=== PATIENT | male | born 1965 | race African-American/Black ===

== ENCOUNTER 2017-04-09 18:27 | Inpatient (IN) | payer OTHER ==
[2017-04-09 19:25] VITALS: BMI 23.0
--- NOTE | 2017-04-09 20:59 | HP ---
CIWA Score - CIWA Score Nausea/Vomitin Muscle Tremors: 4-Moderate,w/Arms Extend Anxiety: 4-Mod. Anxious/Guarded Agitation: 4-Moderately Restless Paroxysmal Sweats: 3 Orientation: 0-Oriented Tacttile Disturbances: 0-None Auditory Disturbances: 0-None Visual Disturbances: 0-None Headache: 0-None Present CIWA-Ar Total Score: 18 Admission ROS BHS - HPI Chief Complaint: C/O WITHDRAWAL SX'S. SEEKING DETOX TXMENT FOR ALCOHOLISM Allergies/Adverse Reactions: Allergies Allergy/AdvReac Type Severity Reaction Status Date / Time Penicillins AdvReac Verified 04/09/17 20:53 History of Present Illness: 52 Y.O. MALE WITH HX/O ALCOHOLISM HERE FOR ADMISSION TO DETOX. THIS IS HIS FIRST TIME HERE. SENT BY [facility]. DENIES ANY RECENT DETOX IN PAST MONTH. DENIES ANY SIGNIFICANT PERIOD OF CLEAN TIME. Exam Limitations: No Limitations - Ebola screening Have you traveled outside of the country in the last 21 days: No Have you had contact with anyone from an Ebola affected area: No Have you been sick,other than usual withdrawal symptoms: No Do you have a fever: No - Review of Systems Constitutional: Chills, Loss of Appetite, Night Sweats, Changes in sleep EENT: reports: Dental Problems (MISSING TEETH) Respiratory: reports: No Symptoms reported Cardiac: reports: No Symptoms Reported GI: reports: Poor Appetite, Poor Fluid Intake, Abdominal cramping : reports: No Symptoms Reported Musculoskeletal: reports: No Symptoms Reported Integumentary: reports: No Symptoms Reported Neuro: reports: Tremors (R/T ETOH WITHDRAWAL) Endocrine: reports: No Symptoms Reported Hematology: reports: No Symptoms Reported Psychiatric: reports: Depressed, other (SCHIZOPHRENIA) Other Systems: Reviewed and Negative Patient History - Patient Medical History Hx Anemia: No Hx Asthma: No Hx Chronic Obstructive Pulmonary Disease (COPD): No Hx Cancer: No Hx Cardiac Disorders: No Hx Congestive Heart Failure: No Hx Hypertension: No Hx Hypercholesterolemia: No Hx Pacemaker: No HX Cerebrovascular Accident: No Hx Seizures: No Hx Dementia: No Hx Diabetes: No Hx Gastrointestinal Disorders: No Hx Liver Disease: No Hx Genitourinary Disorders: No Hx Sexually Transmitted Disorders: No Hx Renal Disease (ESRD): No Hx Thyroid Disease: No Hx Human Immunodeficiency Virus (HIV): No Hx Hepatitis C: No Hx Depression: No Hx Suicide Attempt: No Hx Bipolar Disorder: No Hx Schizophrenia: Yes (ON RISPERDAL) - Patient Surgical History Past Surgical History: No - PPD History Previous Implant?: Yes Documented Results: Negative w/o proof Implanted On Prior [facility] Admission?: No PPD to be Administered?: Yes - Smoking Cessation Smoking history: Current every day smoker Have you smoked in the past 12 months: Yes Aproximately how many cigarettes per day: 20 Cigars Per Day: 0 Hx Chewing Tobacco Use: No Initiated information on smoking cessation: Yes 'Breaking Loose' booklet given: 04/09/17 - Substance & Tx. History Hx Alcohol Use: Yes Hx Substance Use: Yes Substance Use Type: Alcohol, Cocaine Hx Substance Use Treatment: Yes (DOES NOT RECALL " UPSTATE SOMEWHERE") - Substances Abused BEER/ LIQUOR Route: Oral Frequency: Daily Amount used: 1 PINT/ 1- 6 PACK Age of first use: 14 Date of Last Use: 04/09/17 COCAINE Route: Smoking Frequency: Daily Amount used: 100 Age of first use: 24 Date of Last Use: 04/09/17 Family Disease History - Family Disease History Family Disease History: Diabetes: Mother (), Other: Father (ALCOHOLISM, ) Admission Physical Exam BHS - Vital Signs Vital Signs: Vital Signs - 24 hr 04/09/17 19:21 Temperature 98.1 F Pulse Rate 85 Respiratory 18 Rate Blood Pressure 112/77 - Physical General Appearance: Yes: Disheveled, Mild Distress, Tremorous, Anxious HEENTM: Yes: EOMI, Normal ENT Inspection, Normocephalic, YOKASTA, Pharynx Normal, Other (MISSING TEETH) Respiratory: Yes: Chest Non-Tender, Lungs Clear, Normal Breath Sounds, No Respiratory Distress, No Accessory Muscle Use Neck: Yes: No masses,lesions,Nodules, Supple, Trachea in good position Breast: Yes: Breast Exam Deferred Cardiology: Yes: Regular Rhythm, Regular Rate, S1, S2 Abdominal: Yes: Normal Bowel Sounds, Non Tender, Soft Genitourinary: Yes: Within Normal Limits Back: Yes: Normal Inspection Musculoskeletal: Yes: full range of Motion, Gait Steady Extremities: Yes: Normal Capillary Refill, Normal Range of Motion, Non-Tender, Tremors 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: 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: 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, Fully Oriented, Alert Integumentary: Yes: Dry, Warm, Other (ECZEMA PATCHES TO INNER AC) Lymphatic: Yes: Within Normal Limits - Diagnostic (1) Alcohol dependence with uncomplicated withdrawal Current Visit: Yes Status: Chronic (2) Cocaine abuse, uncomplicated Current Visit: Yes Status: Chronic (3) Nicotine dependence Current Visit: Yes Status: Chronic Qualifiers: Nicotine product type: cigarettes Substance use status: unspecified nicotine-induced disorder Qualified Code(s): F17.219 - Nicotine dependence, cigarettes, with unspecified nicotine-induced disorders Cleared for Admission [facility] - Detox or Rehab [facility] Level of Care: Medically Managed Detox Regimen/Protocol: Librium [facility] Breath Alcohol Content Breath Alcohol Content: 0 Urine Drug Screen - Results Drug Screen Negative: No Urine Drug Screen Results: ELYSIA-Cocaine
[2017-04-09] MEDS ORDERED: MENTHOL/PHENOL 1 EACH UD MM PRN (21:08)
[2017-04-09] MEDS ORDERED: P-EPHED 60MG/TRIPROLIDI 2.5MG TABLET PO PRN (21:08)
[2017-04-09] MEDS ORDERED: chlordiazePOXIDE HCL 25 MG CAPSULE PO PRN (21:08)
[2017-04-09] MEDS ORDERED: ACETAMINOPHEN 325 MG TABLET (FP) PO PRN (21:08)
[2017-04-09] MEDS ORDERED: MAGNESIUM HYDROX 2400MG/30ML ORAL SUSPENSION 30 ML CUP PO PRN (21:08)
[2017-04-09] MEDS ORDERED: IBUPROFEN 400 MG TABLET (FP) PO PRN (21:08)
[2017-04-09] MEDS ORDERED: MAGNESIUM CITRATE 300 ML BOTTLE PO PRN (21:08)
[2017-04-09] MEDS ORDERED: hydrOXYzine PAMOATE 50 MG CAPSULE (FP) PO PRN (21:08)
[2017-04-09] MEDS ORDERED: MAG HYDROX/AL HYDROX/SIMETH 30 ML UNIT-DOSE CUP PO PRN (21:08)
[2017-04-09] MEDS ORDERED: LOPERAMIDE HCL 2 MG CAPSULE PO PRN (21:08)
[2017-04-09] MEDS ORDERED: guaiFENesin/D-METHORPHAN HB 10 ML UNIT-DOSE CUPS PO PRN (21:08)
[2017-04-09] MEDS ORDERED: NICOTINE POLACRILEX 4 MG GUM BC PRN (21:08)
[2017-04-09] MEDS: THIAMINE HCL 100 MG TABLET (FP) PO SCH (23:53)
[2017-04-09] MEDS: chlordiazePOXIDE HCL 25 MG CAPSULE PO SCH (23:53)
[2017-04-10] MEDS: chlordiazePOXIDE HCL 25 MG CAPSULE PO SCH ×4 (06:28→22:18)
[2017-04-10 10:12] LABS: MCH 29.4 pg (25.7-33.7); MCHC 32.6 g/dl (32.0-35.9); MEAN CELL VOLUME 90.3 fl (80-96); MEAN PLT VOLUME 8.8 fl (7.5-11.1); PLATELET COUNT 186 K/MM3 (134-434); RDW 15.8 % (11.9-15.9); WHITE BLOOD COUNT 3.9 K/mm3 (4.0-10.0)
[2017-04-10 10:20] LABS: ALBUMIN 3.2 g/dl (3.4-5.0); ANION GAP 7 (8-16); CALCIUM 8.2 mg/dL (8.5-10.1); CO2 27 mmol/L (21-32); GLUCOSE,RANDOM 114 mg/dL (74-106)
[2017-04-10 10:22] LABS: ALK PHOS 97 U/L (45-117); BILIRUBIN,TOTAL 0.8 mg/dL (0.2-1.0); CREATININE 1.2 mg/dL (0.7-1.3); SGOT/AST 30 U/L (15-37); SGPT/ALT 21 U/L (12-78); TOT PROT 6.3 g/dl (6.4-8.2)
[2017-04-10] MEDS: PRENATAL VITAMINS W/ FOLIC ACID TABLET (FP) PO SCH (10:24)
[2017-04-10] MEDS: NICOTINE 21 MG/24 HOURS TOPICAL PATCH TD SCH (10:24)
--- NOTE | 2017-04-10 11:37 | CONSULT ---
[facility] Psychiatric Consult - Data Date of interview: 04/10/17 Admission source: [facility] Identifying data: Pt. is a 52 year old single, unemployed male. Pt. admitted to for cocaine and alcohol dependence. Substance Abuse History: Cocaine- First used: 24 years old. Usage: Daily, " a large amount." Last used on 04/09/2017. Beer- First used [age] years of age. Usage: 1 pint/ 1-6 packs daily. Last used on 04/09/2017. Cigarettes- First used: "Long time ago". Usage: Daily. Medical History: Pt. denies. Psychiatric History: Pt. self reports a history of schizophrenia. States he has been on the medication risperdal 2mg for 8 years. Mr. Blum states the medication is prescribed by his primary care provider. Pt. unable to provide a contact number. Pt. denies h/o past psychiatric hospitalizations. Pt. denies h /o suicide attempts. Pt. currently denies SI, HI, and auditory and visual hallucinations. Physical/Sexual Abuse/Trauma History: Pt. denies. Mental Status Exam - Mental Status Exam Alert and Oriented to: Time, Place, Person Cognitive Function: Fair Patient Appearance: Well Groomed Mood: Withdrawn Affect: Flat Patient Behavior: Sedated, Asleep (Pt. continued to fall asleep throughout interview but was able to answer the questions.) Speech Pattern: Slurred Voice Loudness: Moderately Soft/Quiet Thought Process: Goal Oriented Thought Disorder: Not Present Hallucinations: Denies Suicidal Ideation: Denies Homicidal Ideation: Denies Insight/Judgement: Fair Sleep: Fair Appetite: Fair Muscle strength/Tone: Normal Gait/Station: Other (was not able to witness patient's gait due to patient laying in bed throughout the interview.) Psychiatric Findings - Problem List ([place] 1, 2,3) (1) Alcohol dependence with uncomplicated withdrawal Current Visit: Yes Status: Acute (2) Cocaine abuse, uncomplicated Current Visit: Yes Status: Acute (3) Nicotine dependence Current Visit: Yes Status: Chronic Qualifiers: Nicotine product type: cigarettes Substance use status: unspecified nicotine-induced disorder Qualified Code(s): F17.219 - Nicotine dependence, cigarettes, with unspecified nicotine-induced disorders (4) Substance induced mood disorder Current Visit: Yes Status: Suspected - Initial Treatment Plan Initial Treatment Plan: Psychoeducation provided. Detoxification in progress. Pt. refused psychotrophic medications.
--- NOTE | 2017-04-10 11:43 | EKG ---
Test Reason : Blood Pressure : / mmHG Vent. Rate : 053 BPM Atrial Rate : 078 BPM P-R Int : 140 ms QRS Dur : 104 ms QT Int : 518 ms P-R-T Axes : 047 075 071 degrees QTc Int : 486 ms SINUS RHYTHM WITH BLOCKED PREMATURE ATRIAL COMPLEXES VOLTAGE CRITERIA FOR LEFT VENTRICULAR HYPERTROPHY T WAVE ABNORMALITY, CONSIDER ANTERIOR ISCHEMIA PROLONGED QT ABNORMAL ECG NO PREVIOUS ECGS AVAILABLE Confirmed by SHYANNE XAVIER, HAWK ([id number]) on 04/10/2017 11:43:15 AM Referred By: Confirmed By:HAWK KIMBLE MD
--- NOTE | 2017-04-10 11:43 | EKG ---
Test Reason : Blood Pressure : / mmHG Vent. Rate : 050 BPM Atrial Rate : 050 BPM P-R Int : 142 ms QRS Dur : 102 ms QT Int : 496 ms P-R-T Axes : 064 073 069 degrees QTc Int : 452 ms SINUS BRADYCARDIA MINIMAL VOLTAGE CRITERIA FOR LVH, MAY BE NORMAL VARIANT ST ELEVATION, CONSIDER EARLY REPOLARIZATION, PERICARDITIS, OR INJURY ABNORMAL ECG WHEN COMPARED WITH ECG OF 10-APR-2017 00:58, PREMATURE ATRIAL COMPLEXES ARE NO LONGER PRESENT Confirmed by HAWK KIMBLE MD ([id number]) on 04/10/2017 11:42:43 AM Referred By: Confirmed By:HAWK KIMBLE MD
--- NOTE | 2017-04-10 15:26 | PN ---
[facility] CIWA - CIWA Score Nausea/Vomitin-No Nausea/No Vomiting Muscle Tremors: 4-Moderate,w/Arms Extend Anxiety: 4-Mod. Anxious/Guarded Agitation: 1-Slight > Activity Paroxysmal Sweats: 3 Orientation: 2-Disoriented Date<2 days Tacttile Disturbances: 2-Mild Itch/Numbness/Burn Auditory Disturbances: 0-None Visual Disturbances: 0-None Headache: 0-None Present CIWA-Ar Total Score: 16 S Progress Note (SOAP) Subjective: Tremors, Anxious, Fatigue, Sweating. Objective: PT. A & O X 2 (UNCERTAIN ABOUT DAY / DATE). NO ACUTE DISTRESS. PT. DENIES CHEST PAIN. 04/10/17 15:22 Vital Signs Temperature 97.8 F 04/10/17 13:01 Pulse Rate 55 L 04/10/17 13:01 Respiratory Rate 18 04/10/17 13:01 Blood Pressure 136/76 04/10/17 13:01 O2 Sat by Pulse Oximetry (%) Laboratory Tests 04/10/17 04/10/17 04/10/17 07:00 07:00 07:00 WBC 3.9 L RBC 4.26 Hgb 12.5 Hct 38.5 MCV 90.3 MCH 29.4 MCHC 32.6 RDW 15.8 Plt Count 186 MPV 8.8 Sodium 145 Potassium 3.9 Chloride 111 H Carbon Dioxide 27 Anion Gap 7 L BUN 14 Creatinine 1.2 Creat Clearance w eGFR > 60 Random Glucose 114 H Calcium 8.2 L Total Bilirubin 0.8 AST 30 ALT 21 Alkaline Phosphatase 97 Total Protein 6.3 L Albumin 3.2 L RPR Titer Nonreactive LABS NOTED. UA RESULTS PENDING. HCV AB RESULT PENDING. ECG RESULT NOTED. 04/10/17 15:24 Assessment: 04/10/17 15:23 WITHDRAWAL SYMPTOMS. Plan: CONTINUE DETOX. PATIENT ADVISED TO FOLLOW-UP WITH SALES FORECAST ANALYST AT [facility] ([place], [place] AFTER DISCHARGE FROM DETOX FOR ABNORMALITIES FOUND ON ADMISSION ECG.
[2017-04-10 16:50] LABS: URINE APPEARANCE CLEAR; URINE BILIRUBIN NEGATIVE (NEGATIVE); URINE BLOOD NEGATIVE (NEGATIVE); URINE COLOR YELLOW; URINE GLUCOSE (UA) NEGATIVE (NEGATIVE); URINE KETONE NEGATIVE (NEGATIVE); URINE LEUK ESTERASE NEGATIVE (NEGATIVE); URINE NITRITE NEGATIVE (NEGATIVE); URINE PROTEIN NEGATIVE (NEGATIVE)
[2017-04-10 20:17] LABS: URINE LEUK ESTERASE Negative (NEGATIVE)
[2017-04-10] MEDS: THIAMINE HCL 100 MG TABLET (FP) PO SCH (22:18)
[2017-04-11] MEDS: chlordiazePOXIDE HCL 25 MG CAPSULE PO SCH ×3 (05:45→17:35)
[2017-04-11] MEDS: NICOTINE 21 MG/24 HOURS TOPICAL PATCH TD SCH (10:16)
[2017-04-11] MEDS: PRENATAL VITAMINS W/ FOLIC ACID TABLET (FP) PO SCH (10:16)
--- NOTE | 2017-04-11 14:39 | PN ---
[facility] CIWA - CIWA Score Nausea/Vomitin-No Nausea/No Vomiting Muscle Tremors: 3 Anxiety: 4-Mod. Anxious/Guarded Agitation: 3 Paroxysmal Sweats: 3 Orientation: 2-Disoriented Date<2 days Tacttile Disturbances: 1-Very Mild Itch/Numbness Auditory Disturbances: 1-Very Mild Visual Disturbances: 0-None Headache: 0-None Present CIWA-Ar Total Score: 17 BHS Progress Note (SOAP) Subjective: Sweating, Anxious, Tremors. Objective: PT. A & O X 2 (UNCERTAIN ABOUT DAY DATE). NO ACUTE DISTRESS. 04/11/17 14:37 Vital Signs Temperature 97.9 F 04/11/17 13:07 Pulse Rate 61 04/11/17 13:07 Respiratory Rate 18 04/11/17 13:07 Blood Pressure 129/89 04/11/17 13:07 O2 Sat by Pulse Oximetry (%) Laboratory Tests 04/09/17 04/09/17 04/10/17 07:00 16:35 07:00 WBC 3.9 L RBC 4.26 Hgb 12.5 Hct 38.5 MCV 90.3 MCH 29.4 MCHC 32.6 RDW 15.8 Plt Count 186 MPV 8.8 Sodium Potassium Chloride Carbon Dioxide Anion Gap BUN Creatinine Creat Clearance w eGFR Random Glucose Calcium Total Bilirubin AST ALT Alkaline Phosphatase Total Protein Albumin Urine Color Yellow Urine Appearance Clear Urine pH 5.0 Ur Specific [place] 1.024 Urine Protein Negative Urine Glucose (UA) Negative Urine Ketones Negative Urine Blood Negative Urine Nitrite Negative Urine Bilirubin Negative Urine Urobilinogen 2.0 Ur Leukocyte Esterase Negative RPR Titer Hepatitis C Antibody 0.2 04/10/17 04/10/17 07:00 07:00 WBC RBC Hgb Hct MCV MCH MCHC RDW Plt Count MPV Sodium 145 Potassium 3.9 Chloride 111 H Carbon Dioxide 27 Anion Gap 7 L BUN 14 Creatinine 1.2 Creat Clearance w eGFR > 60 Random Glucose 114 H Calcium 8.2 L Total Bilirubin 0.8 AST 30 ALT 21 Alkaline Phosphatase 97 Total Protein 6.3 L Albumin 3.2 L Urine Color Urine Appearance Urine pH Ur Specific [place] Urine Protein Urine Glucose (UA) Urine Ketones Urine Blood Urine Nitrite Urine Bilirubin Urine Urobilinogen Ur Leukocyte Esterase RPR Titer Nonreactive Hepatitis C Antibody LABS NOTED. Assessment: 04/11/17 14:38 WITHDRAWAL SYMPTOMS. Plan: CONTINUE DETOX.
[2017-04-11] MEDS: THIAMINE HCL 100 MG TABLET (FP) PO SCH (22:21)
[2017-04-11] MEDS: chlordiazePOXIDE 5 MG CAPSULE PO SCH (22:21)
[2017-04-12] MEDS: chlordiazePOXIDE 5 MG CAPSULE PO SCH ×2 (05:37→11:17)
[2017-04-12 09:41] VITALS: BP 126/89; PULSE 60; TEMP 98
[2017-04-12] MEDS: PRENATAL VITAMINS W/ FOLIC ACID TABLET (FP) PO SCH (11:17)
[2017-04-12] MEDS: NICOTINE 21 MG/24 HOURS TOPICAL PATCH TD SCH (11:17)
--- NOTE | 2017-04-12 18:12 | DS ---
[facility] Detox Discharge Summary Admission Date: 04/09/17 Discharge Date: 04/12/17 - History Present History: Alcohol Dependence, Cocaine Dependence Additional Comments: PATIENT ELECTING TO GO HOME AT THIS TIME. PATIENT ADVISED THAT, IF HE DOES NOT PURSUE REHAB ADMISSION IN NEAR FUTURE HE ORIGINALLY INTENDED, THEN HE SHOULD CONSIDER LOCAL 12-STEP / NA / AA OUTPATIENT SUPPORT GROUPS FOR AFTERCARE. PATIENT LEFT DETOX UNIT IN STABLE MEDICAL CONDITION. Pertinent Past History: Nicotine Dependence, Schizophrenia. - Physical Exam Results Vital Signs: Vital Signs Temperature 98.0 F 04/12/17 09:40 Pulse Rate 60 04/12/17 09:40 Respiratory Rate 18 04/12/17 09:40 Blood Pressure 126/89 04/12/17 09:40 O2 Sat by Pulse Oximetry (%) Pertinent Admission Physical Exam Findings: WITHDRAWAL SYMPTOMS. Laboratory Tests 04/09/17 04/09/17 04/10/17 07:00 16:35 07:00 WBC 3.9 L RBC 4.26 Hgb 12.5 Hct 38.5 MCV 90.3 MCH 29.4 MCHC 32.6 RDW 15.8 Plt Count 186 MPV 8.8 Sodium Potassium Chloride Carbon Dioxide Anion Gap BUN Creatinine Creat Clearance w eGFR Random Glucose Calcium Total Bilirubin AST ALT Alkaline Phosphatase Total Protein Albumin Urine Color Yellow Urine Appearance Clear Urine pH 5.0 Ur Specific [place] 1.024 Urine Protein Negative Urine Glucose (UA) Negative Urine Ketones Negative Urine Blood Negative Urine Nitrite Negative Urine Bilirubin Negative Urine Urobilinogen 2.0 Ur Leukocyte Esterase Negative RPR Titer Hepatitis C Antibody 0.2 04/10/17 04/10/17 07:00 07:00 WBC RBC Hgb Hct MCV MCH MCHC RDW Plt Count MPV Sodium 145 Potassium 3.9 Chloride 111 H Carbon Dioxide 27 Anion Gap 7 L BUN 14 Creatinine 1.2 Creat Clearance w eGFR > 60 Random Glucose 114 H Calcium 8.2 L Total Bilirubin 0.8 AST 30 ALT 21 Alkaline Phosphatase 97 Total Protein 6.3 L Albumin 3.2 L Urine Color Urine Appearance Urine pH Ur Specific [place] Urine Protein Urine Glucose (UA) Urine Ketones Urine Blood Urine Nitrite Urine Bilirubin Urine Urobilinogen Ur Leukocyte Esterase RPR Titer Nonreactive Hepatitis C Antibody LABS NOTED. - Treatment Hospital Course: Detox Protocol Followed, Detoxed Safely, Responded well, Discharged Condition Good Patient has Accepted a Rehab Referral to: PT GOING HOME, ADVISED TO CONSIDER LOCAL 12-STEP/NA/AA SUPPORT GROUPS. - Diagnosis (1) Alcohol dependence with uncomplicated withdrawal Status: Acute (2) Cocaine abuse, uncomplicated Status: Acute (3) Nicotine dependence Status: Chronic Qualifiers: Nicotine product type: cigarettes Substance use status: unspecified nicotine-induced disorder Qualified Code(s): F17.219 - Nicotine dependence, cigarettes, with unspecified nicotine-induced disorders (4) Substance induced mood disorder Status: Suspected - AMA Did Patient Leave Against Medical Advice: No
[2017-04-12] MEDS ORDERED: chlordiazePOXIDE HCL 10 MG CAPSULE PO SCH (23:00)
== END 2017-04-12 11:30 | disposition home or self-care (01) | DRG 897 ==
LOC: YASAS 18:27 → Y3N 22:56
PROVIDERS: ADMIT Internal Medicine; ATTEND Internal Medicine
PROC: HZ2ZZZZ Detoxification Services for Substance Abuse Treatment (ICD-10-PCS; principal; 2017-04-09)
DX: F10.230 Alcohol dependence with withdrawal, uncomplicated (principal); F14.10 Cocaine abuse, uncomplicated; F17.210 Nicotine dependence, cigarettes, uncomplicated; F19.24 Other psychoactive substance dependence with psychoactive substance-induced mood disorder
CPT/HCPCS: 36415; 80053; 81003; 85027; 86593; 86803; 93005; 93010

== ENCOUNTER 2017-05-07 11:39 | Inpatient (IN) | payer OTHER ==
[2017-05-07 11:47] VITALS: BMI 23.7
--- NOTE | 2017-05-07 14:02 | HP ---
CIWA Score - CIWA Score Nausea/Vomitin-No Nausea/No Vomiting Muscle Tremors: 4-Moderate,w/Arms Extend Anxiety: 4-Mod. Anxious/Guarded Agitation: 4-Moderately Restless Paroxysmal Sweats: 1-Minimal Palms Moist Orientation: 0-Oriented Tacttile Disturbances: 3-Moderate Itch/Numb/Burn Auditory Disturbances: 0-None Visual Disturbances: 0-None Headache: 2-Mild CIWA-Ar Total Score: 18 Admission ROS BHS - HPI Chief Complaint: WITHDRAWAL SX FROM ALCOHOL Allergies/Adverse Reactions: Allergies Allergy/AdvReac Type Severity Reaction Status Date / Time Penicillins Allergy Intermediate Hives Verified 05/07/17 12:45 History of Present Illness: 52 Y/O AA/MALE WITH A HX ALCOHOL DEPENDENCE SEEKING DETOX [place]. Exam Limitations: No Limitations - Ebola screening Have you traveled outside of the country in the last 21 days: No Have you had contact with anyone from an Ebola affected area: No Have you been sick,other than usual withdrawal symptoms: No Do you have a fever: No - Review of Systems Constitutional: Chills, Night Sweats, Changes in sleep, Unintentional Wgt. Loss EENT: reports: Blurred Vision (WEARS GLASSES), Tearing, Nose Congestion, Dental Problems (MISSING TEETH) Respiratory: reports: No Symptoms reported Cardiac: reports: Lightheadedness, Palpitations GI: reports: Poor Fluid Intake : reports: Frequency Musculoskeletal: reports: Back Pain, Muscle Pain Integumentary: reports: No Symptoms Reported Neuro: reports: Headache, Tremors, Unsteady Gait, Dizziness Endocrine: reports: No Symptoms Reported Hematology: reports: No Symptoms Reported Psychiatric: reports: Orientated x3 Other Systems: Reviewed and Negative Patient History - Patient Medical History Hx Anemia: No Hx Asthma: No Hx Chronic Obstructive Pulmonary Disease (COPD): No Hx Cancer: No Hx Cardiac Disorders: No Hx Congestive Heart Failure: No Hx Hypertension: No Hx Hypercholesterolemia: No Hx Pacemaker: No HX Cerebrovascular Accident: No Hx Seizures: No Hx Dementia: No Hx Diabetes: No Hx Gastrointestinal Disorders: No Hx Liver Disease: No Hx Genitourinary Disorders: No Hx Sexually Transmitted Disorders: Yes (SYPHILIS HX AND TX) Hx Renal Disease (ESRD): No Hx Thyroid Disease: No Hx Human Immunodeficiency Virus (HIV): No Hx Hepatitis C: No Hx Depression: Yes (MEDS IN THE PAST ;NOT CURRENTLY ON MEDS) Hx Suicide Attempt: No (DENIES) Hx Bipolar Disorder: No Hx Schizophrenia: Yes - Patient Surgical History Past Surgical History: No Hx Neurologic Surgery: No Hx Cataract Extraction: No Hx Cardiac Surgery: No Hx Lung Surgery: No Hx Breast Surgery: No Hx Breast Biopsy: No Hx Abdominal Surgery: No Hx Appendectomy: No Hx Cholecystectomy: No Hx Genitourinary Surgery: No Hx Orthopedic Surgery: No Anesthesia Reaction: No - PPD History Previous Implant?: Yes Documented Results: Negative w/proof Implanted On Prior [facility] Admission?: No Date: 04/11/17 PPD to be Administered?: No - Reproductive History Patient is a Female of Child Bearing Age (11 -55 yrs old): No (MALE) Patient : No - Smoking Cessation Smoking history: Current every day smoker Have you smoked in the past 12 months: Yes Aproximately how many cigarettes per day: 20 Cigars Per Day: 0 Hx Chewing Tobacco Use: No Initiated information on smoking cessation: Yes 'Breaking Loose' booklet given: 05/07/17 - Substance & Tx. History Hx Alcohol Use: Yes (BEER/VODKA) Hx Substance Use: Yes (COCAINE) Substance Use Type: Alcohol, Cocaine Hx Substance Use Treatment: Yes (LAST TX AT [facility] DETOX) - Substances Abused Alcohol Route: Oral Frequency: Daily Amount used: 6 PACK Age of first use: 12 Date of Last Use: 05/07/17 Cocaine Route: Smoking Frequency: Daily Amount used: $100 Age of first use: 24 Date of Last Use: 05/07/17 Family Disease History - Family Disease History Family Disease History: Diabetes: Mother (), Other: Father (ALCOHOLISM, ) Admission Physical Exam [facility] - Vital Signs Vital Signs: Vital Signs - 24 hr 05/07/17 11:45 Temperature 97.7 F Pulse Rate 90 Respiratory 18 Rate Blood Pressure 113/67 - Physical General Appearance: Yes: Moderate Distress, Alcohol on Breath, Intoxicated, Irritable, Anxious HEENTM: Yes: EOMI, Normocephalic, YOKASTA, Pharynx Normal Respiratory: Yes: Chest Non-Tender, Lungs Clear, Normal Breath Sounds, No Respiratory Distress Neck: Yes: No masses,lesions,Nodules, Supple, Trachea in good position Breast: Yes: Breast Exam Deferred Cardiology: Yes: Regular Rhythm, Regular Rate, S1, S2 Abdominal: Yes: Normal Bowel Sounds, Non Tender, Flat Genitourinary: Yes: Other (2351) Back: Yes: Within Normal Limits Musculoskeletal: Yes: full range of Motion, Gait Steady Extremities: Yes: Normal Range of Motion, Non-Tender 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, Fully Oriented, Alert, Motor Strength 5/5, Normal Mood/Affect Integumentary: Yes: Dry, Warm Lymphatic: Yes: Within Normal Limits - Diagnostic (1) Alcohol dependence with uncomplicated withdrawal Current Visit: Yes Status: Acute (2) Nicotine dependence Current Visit: Yes Status: Acute Qualifiers: Nicotine product type: cigarettes Substance use status: in withdrawal Qualified Code(s): F17.213 - Nicotine dependence, cigarettes, with withdrawal (3) Cocaine dependence, uncomplicated Current Visit: Yes Status: Acute Cleared for Admission [facility] - Detox or Rehab [facility] Level of Care: Medically Managed Detox Regimen/Protocol: Librium [facility] Breath Alcohol Content Breath Alcohol Content: 0.034 Urine Drug Screen - Results Drug Screen Negative: No Urine Drug Screen Results: ELYSIA-Cocaine, BZO-Benzodiazepines
[2017-05-07] MEDS ORDERED: MAG HYDROX/AL HYDROX/SIMETH 30 ML UNIT-DOSE CUP PO PRN (14:17)
[2017-05-07] MEDS ORDERED: NICOTINE POLACRILEX 4 MG GUM BUC PRN (14:17)
[2017-05-07] MEDS ORDERED: ACETAMINOPHEN 325 MG TABLET (FP) PO PRN (14:17)
[2017-05-07] MEDS ORDERED: MAGNESIUM CITRATE 300 ML BOTTLE PO PRN (14:17)
[2017-05-07] MEDS ORDERED: guaiFENesin/D-METHORPHAN HB 10 ML UNIT-DOSE CUPS PO PRN (14:17)
[2017-05-07] MEDS ORDERED: MENTHOL/PHENOL 1 EACH UD MM PRN (14:17)
[2017-05-07] MEDS ORDERED: P-EPHED 60MG/TRIPROLIDI 2.5MG TABLET PO PRN (14:17)
[2017-05-07] MEDS ORDERED: IBUPROFEN 400 MG TABLET (FP) PO PRN (14:17)
[2017-05-07] MEDS ORDERED: chlordiazePOXIDE HCL 25 MG CAPSULE PO PRN (14:17)
[2017-05-07] MEDS ORDERED: LOPERAMIDE HCL 2 MG CAPSULE PO PRN (14:17)
[2017-05-07] MEDS ORDERED: MAGNESIUM HYDROX 2400MG/30ML ORAL SUSPENSION 30 ML CUP PO PRN (14:17)
[2017-05-07] MEDS ORDERED: chlordiazePOXIDE HCL 25 MG CAPSULE PO ONE (15:15)
[2017-05-07 18:43] LABS: HEMATOCRIT 42.8 % (35.4-49); HEMOGLOBIN 14.1 GM/dL (11.7-16.9); MCH 29.5 pg (25.7-33.7); MEAN CELL VOLUME 89.3 fl (80-96); MEAN PLT VOLUME 8.5 fl (7.5-11.1); PLATELET COUNT 258 K/MM3 (134-434); RBC 4.79 M/mm3 (4.00-5.60); RDW 15.6 % (11.9-15.9); WHITE BLOOD COUNT 3.2 K/mm3 (4.0-10.0)
[2017-05-07] MEDS: NICOTINE 21 MG/24 HOURS TOPICAL PATCH TD SCH (18:44)
[2017-05-07] MEDS: chlordiazePOXIDE HCL 25 MG CAPSULE PO SCH ×2 (18:44→22:17)
[2017-05-07 18:49] LABS: URINE APPEARANCE CLEAR; URINE BILIRUBIN NEGATIVE (NEGATIVE); URINE BLOOD NEGATIVE (NEGATIVE); URINE COLOR YELLOW; URINE GLUCOSE (UA) NEGATIVE (NEGATIVE); URINE KETONE TRACE (NEGATIVE); URINE LEUK ESTERASE NEGATIVE (NEGATIVE); URINE NITRITE NEGATIVE (NEGATIVE); URINE PROTEIN NEGATIVE (NEGATIVE)
[2017-05-07 18:50] LABS: ALBUMIN 3.7 g/dl (3.4-5.0); ANION GAP 6 (8-16); BLOOD UREA NITROGEN 9 mg/dL (7-18); CALCIUM 8.5 mg/dL (8.5-10.1); CHLORIDE 105 mmol/L (98-107); CO2 29 mmol/L (21-32); CREATININE 1.1 mg/dL (0.7-1.3); GLUCOSE,RANDOM 90 mg/dL (74-106); POTASSIUM 4.1 mmol/L (3.5-5.1); SGOT/AST 30 U/L (15-37); SGPT/ALT 22 U/L (12-78); SODIUM 140 mmol/L (136-145)
[2017-05-07 18:52] LABS: ALK PHOS 107 U/L (45-117); BILIRUBIN,TOTAL 0.5 mg/dL (0.2-1.0); TOT PROT 7.1 g/dl (6.4-8.2)
[2017-05-07] MEDS: THIAMINE HCL 100 MG TABLET (FP) PO SCH (22:17)
[2017-05-08] MEDS: chlordiazePOXIDE HCL 25 MG CAPSULE PO SCH ×4 (05:49→22:23)
--- NOTE | 2017-05-08 08:02 | CONSULT ---
[facility] Psychiatric Consult - Data Date of interview: 05/08/17 Admission source: [facility] Identifying data: This is 52 years old male with no psychiatric hospitalization histyory intoxicated with: Alcoho, Cocaine and Nicotine Substance Abuse History: - Smoking Cessation. Smoking history: Current every day smoker. Have you smoked in the past 12 months: Yes. Aproximately how many cigarettes per day: 20. Cigars Per Day: 0. Hx Chewing Tobacco Use: No. Initiated information on smoking cessation: Yes. 'Breaking Loose' booklet given : 05/07/17. - Substance & Tx. History. Hx Alcohol Use: Yes (BEER/VODKA). Hx Substance Use: Yes (COCAINE). Substance Use Type: Alcohol, Cocaine. Hx Substance Use Treatment: Yes (LAST TX AT [facility] DETOX). - Substances Abused. * * Alcohol. Route: Oral. Frequency: Daily. Amount used: 6 PACK. Age of first use: 12. Date of Last Use: 05/07/17. Cocaine. Route: Smoking. Frequency: Daily. Amount used: $100. Age of first use: 24. Date of Last Use: 05/07/17 Medical History: Denies significant medical issues Psychiatric History: Patient reports history of Paranoid Schizophrenia, reports re history of psychiatric hospitalizations, reports taking prior to admission: Risperdal 2mg po bid Physical/Sexual Abuse/Trauma History: Denies Additional Comment: Risperdal 2mg po bid Mental Status Exam - Mental Status Exam Alert and Oriented to: Person Cognitive Function: Fair Patient Appearance: Unkempt Mood: Suspicious Affect: Constricted Patient Behavior: Cooperative Speech Pattern: Appropriate Voice Loudness: Normal Thought Process: Circumstantial Thought Disorder: Being Controlled Hallucinations: Denies Suicidal Ideation: Denies Homicidal Ideation: Denies Insight/Judgement: Fair Sleep: Difficulty falling asleep Appetite: Fair Muscle strength/Tone: Normal Gait/Station: Normal Additional Comments: Risperdal 2mg po bid Psychiatric Findings - Problem List ([place] 1, 2,3) (1) Paranoid schizophrenia Current Visit: Yes Status: Acute (2) Alcohol dependence with uncomplicated withdrawal Current Visit: Yes Status: Acute (3) Cocaine dependence, uncomplicated Current Visit: Yes Status: Acute (4) Nicotine dependence Current Visit: Yes Status: Acute Qualifiers: Nicotine product type: cigarettes Substance use status: in withdrawal Qualified Code(s): F17.213 - Nicotine dependence, cigarettes, with withdrawal (5) Substance induced mood disorder Current Visit: No Status: Suspected - Initial Treatment Plan Initial Treatment Plan: Risperdal 2mg po bid
--- NOTE | 2017-05-08 10:33 | PN ---
S CIWA - CIWA Score Nausea/Vomitin Muscle Tremors: 3 Anxiety: 3 Agitation: 3 Paroxysmal Sweats: 1-Minimal Palms Moist Orientation: 0-Oriented Tacttile Disturbances: 1-Very Mild Itch/Numbness Auditory Disturbances: 1-Very Mild Visual Disturbances: 0-None Headache: 2-Mild CIWA-Ar Total Score: 17 BHS Progress Note (SOAP) Subjective: alert,irritable,anxious,interrupted sleep,tremor Objective: 05/08/17 10:30 Vital Signs Temperature 95.2 F L 05/08/17 04:00 Pulse Rate 50 L 05/08/17 04:00 Respiratory Rate 18 05/08/17 04:00 Blood Pressure 120/72 05/08/17 04:00 O2 Sat by Pulse Oximetry (%) ekg sinus bradycardia 56/min artifact no chest pain,no sob,no dizziness repeat ekg today 05/08/17 10:32 Laboratory Last Values WBC 3.2 K/mm3 (4.0-10.0) L 05/07/17 15:00 RBC 4.79 M/mm3 (4.00-5.60) 05/07/17 15:00 Hgb 14.1 GM/dL (11.7-16.9) D 05/07/17 15:00 Hct 42.8 % (35.4-49) 05/07/17 15:00 MCV 89.3 fl (80-96) 05/07/17 15:00 MCH 29.5 pg (25.7-33.7) 05/07/17 15:00 MCHC 33.0 g/dl (32.0-35.9) 05/07/17 15:00 RDW 15.6 % (11.9-15.9) 05/07/17 15:00 Plt Count 258 K/MM3 (134-434) D 05/07/17 15:00 MPV 8.5 fl (7.5-11.1) 05/07/17 15:00 Sodium 140 mmol/L (136-145) 05/07/17 15:00 Potassium 4.1 mmol/L (3.5-5.1) 05/07/17 15:00 Chloride 105 mmol/L (98-107) 05/07/17 15:00 Carbon Dioxide 29 mmol/L (21-32) 05/07/17 15:00 Anion Gap 6 (8-16) L 05/07/17 15:00 BUN 9 mg/dL (7-18) D 05/07/17 15:00 Creatinine 1.1 mg/dL (0.7-1.3) 05/07/17 15:00 Creat Clearance w eGFR > 60 (>60) 05/07/17 15:00 Random Glucose 90 mg/dL (74-106) D 05/07/17 15:00 Calcium 8.5 mg/dL (8.5-10.1) 05/07/17 15:00 Total Bilirubin 0.5 mg/dL (0.2-1.0) D 05/07/17 15:00 AST 30 U/L (15-37) 05/07/17 15:00 ALT 22 U/L (12-78) 05/07/17 15:00 Alkaline Phosphatase 107 U/L (45-117) 05/07/17 15:00 Total Protein 7.1 g/dl (6.4-8.2) 05/07/17 15:00 Albumin 3.7 g/dl (3.4-5.0) 05/07/17 15:00 Urine Color Yellow 05/07/17 15:40 Urine Appearance Clear 05/07/17 15:40 Urine pH 5.0 (5.0-8.0) 05/07/17 15:40 Ur Specific [place] 1.024 (1.001-1.035) 05/07/17 15:40 Urine Protein Negative (NEGATIVE) 05/07/17 15:40 Urine Glucose (UA) Negative (NEGATIVE) 05/07/17 15:40 Urine Ketones Trace (NEGATIVE) H 05/07/17 15:40 Urine Blood Negative (NEGATIVE) 05/07/17 15:40 Urine Nitrite Negative (NEGATIVE) 05/07/17 15:40 Urine Bilirubin Negative (NEGATIVE) 05/07/17 15:40 Urine Urobilinogen 2.0 mg/dL (0.2-1.0) 05/07/17 15:40 Ur Leukocyte Esterase Negative (NEGATIVE) 05/07/17 15:40 Assessment: 05/08/17 10:33 withdrawal symptom Plan: continue detox,repeat ekg today
--- NOTE | 2017-05-08 10:36 | PN ---
BHS Progress Note Note: repeat ekg sinus bradycardia 50/min.inverted t in avl,v2,v3 no chest pain,no sob,no dizziness
[2017-05-08] MEDS: PRENATAL VITAMINS W/ FOLIC ACID TABLET (FP) PO SCH (10:40)
[2017-05-08] MEDS: risperiDONE 2 MG TABLET PO SCH ×2 (10:40→22:23)
[2017-05-08] MEDS: NICOTINE 21 MG/24 HOURS TOPICAL PATCH TD SCH (10:42)
--- NOTE | 2017-05-08 12:34 | EKG ---
Test Reason : Blood Pressure : / mmHG Vent. Rate : 056 BPM Atrial Rate : 056 BPM P-R Int : 138 ms QRS Dur : 082 ms QT Int : 588 ms P-R-T Axes : 056 070 118 degrees QTc Int : 567 ms POOR DATA QUALITY, INTERPRETATION MAY BE ADVERSELY AFFECTED SINUS BRADYCARDIA VOLTAGE CRITERIA FOR LEFT VENTRICULAR HYPERTROPHY PROLONGED QT ABNORMAL ECG WHEN COMPARED WITH ECG OF 10-APR-2017 10:18, ST LESS ELEVATED IN INFERIOR LEADS ST NOW DEPRESSED IN LATERAL LEADS QT HAS LENGTHENED Confirmed by SHYANNE XAVIER, HAWK ([id number]) on 05/08/2017 12:34:12 PM Referred By: Confirmed By:HAWK KIMBLE MD
--- NOTE | 2017-05-08 12:35 | EKG ---
Test Reason : Blood Pressure : / mmHG Vent. Rate : 050 BPM Atrial Rate : 050 BPM P-R Int : 146 ms QRS Dur : 086 ms QT Int : 516 ms P-R-T Axes : 062 078 084 degrees QTc Int : 470 ms SINUS BRADYCARDIA T WAVE ABNORMALITY, CONSIDER ANTERIOR ISCHEMIA PROLONGED QT ABNORMAL ECG WHEN COMPARED WITH ECG OF 07-MAY-2017 18:33, ST MORE ELEVATED IN INFERIOR LEADS ST ELEVATION HAS REPLACED ST DEPRESSION IN LATERAL LEADS QT HAS SHORTENED Confirmed by HAWK KIMBLE MD ([id number]) on 05/08/2017 12:35:01 PM Referred By: Confirmed By:HAWK KIMBLE MD
[2017-05-08] MEDS: THIAMINE HCL 100 MG TABLET (FP) PO SCH (22:23)
[2017-05-09] MEDS: chlordiazePOXIDE HCL 25 MG CAPSULE PO SCH ×2 (05:26→10:34)
--- NOTE | 2017-05-09 10:11 | PN ---
S CIWA - CIWA Score Nausea/Vomitin Muscle Tremors: 3 Anxiety: 3 Agitation: 2 Paroxysmal Sweats: 1-Minimal Palms Moist Orientation: 0-Oriented Tacttile Disturbances: 1-Very Mild Itch/Numbness Auditory Disturbances: 1-Very Mild Visual Disturbances: 0-None Headache: 2-Mild CIWA-Ar Total Score: 16 BHS Progress Note (SOAP) Subjective: ALERT,IRRITABLE,ANXIOUS,INTERRUPTED SLEEP,TREMOR Objective: 05/09/17 10:09 Vital Signs Temperature 97.9 F 05/09/17 09:34 Pulse Rate 65 05/09/17 09:34 Respiratory Rate 18 05/09/17 09:34 Blood Pressure 125/63 05/09/17 09:34 O2 Sat by Pulse Oximetry (%) Laboratory Last Values WBC 3.2 K/mm3 (4.0-10.0) L 05/07/17 15:00 RBC 4.79 M/mm3 (4.00-5.60) 05/07/17 15:00 Hgb 14.1 GM/dL (11.7-16.9) D 05/07/17 15:00 Hct 42.8 % (35.4-49) 05/07/17 15:00 MCV 89.3 fl (80-96) 05/07/17 15:00 MCH 29.5 pg (25.7-33.7) 05/07/17 15:00 MCHC 33.0 g/dl (32.0-35.9) 05/07/17 15:00 RDW 15.6 % (11.9-15.9) 05/07/17 15:00 Plt Count 258 K/MM3 (134-434) D 05/07/17 15:00 MPV 8.5 fl (7.5-11.1) 05/07/17 15:00 Sodium 140 mmol/L (136-145) 05/07/17 15:00 Potassium 4.1 mmol/L (3.5-5.1) 05/07/17 15:00 Chloride 105 mmol/L (98-107) 05/07/17 15:00 Carbon Dioxide 29 mmol/L (21-32) 05/07/17 15:00 Anion Gap 6 (8-16) L 05/07/17 15:00 BUN 9 mg/dL (7-18) D 05/07/17 15:00 Creatinine 1.1 mg/dL (0.7-1.3) 05/07/17 15:00 Creat Clearance w eGFR > 60 (>60) 05/07/17 15:00 Random Glucose 90 mg/dL (74-106) D 05/07/17 15:00 Calcium 8.5 mg/dL (8.5-10.1) 05/07/17 15:00 Total Bilirubin 0.5 mg/dL (0.2-1.0) D 05/07/17 15:00 AST 30 U/L (15-37) 05/07/17 15:00 ALT 22 U/L (12-78) 05/07/17 15:00 Alkaline Phosphatase 107 U/L (45-117) 05/07/17 15:00 Total Protein 7.1 g/dl (6.4-8.2) 05/07/17 15:00 Albumin 3.7 g/dl (3.4-5.0) 05/07/17 15:00 Urine Color Yellow 05/07/17 15:40 Urine Appearance Clear 05/07/17 15:40 Urine pH 5.0 (5.0-8.0) 05/07/17 15:40 Ur Specific [place] 1.024 (1.001-1.035) 05/07/17 15:40 Urine Protein Negative (NEGATIVE) 05/07/17 15:40 Urine Glucose (UA) Negative (NEGATIVE) 05/07/17 15:40 Urine Ketones Trace (NEGATIVE) H 05/07/17 15:40 Urine Blood Negative (NEGATIVE) 05/07/17 15:40 Urine Nitrite Negative (NEGATIVE) 05/07/17 15:40 Urine Bilirubin Negative (NEGATIVE) 05/07/17 15:40 Urine Urobilinogen 2.0 mg/dL (0.2-1.0) 05/07/17 15:40 Ur Leukocyte Esterase Negative (NEGATIVE) 05/07/17 15:40 RPR Titer Nonreactive (NONREACTIVE) 05/07/17 15:00 Assessment: 05/09/17 10:10 WITHDRAWAL SYMPTOM Plan: CONTINUE DETOX
[2017-05-09] MEDS: risperiDONE 2 MG TABLET PO SCH ×2 (10:34→22:10)
[2017-05-09] MEDS: PRENATAL VITAMINS W/ FOLIC ACID TABLET (FP) PO SCH (10:34)
[2017-05-09] MEDS: NICOTINE 21 MG/24 HOURS TOPICAL PATCH TD SCH (10:35)
[2017-05-09] MEDS: chlordiazePOXIDE 5 MG CAPSULE PO SCH ×2 (17:59→22:11)
[2017-05-09] MEDS: THIAMINE HCL 100 MG TABLET (FP) PO SCH (22:10)
[2017-05-10] MEDS: chlordiazePOXIDE 5 MG CAPSULE PO SCH ×2 (05:35→12:41)
--- NOTE | 2017-05-10 07:43 | PN ---
[facility] Progress Note Note: Patient was seen and evaluated at bedside with complaint of a fall. Patient states, "I was getting up from bed for my medication when I slipped and hit my head on the bedside table.". Laceration to left forehead noted. Patient rates headache at 8/10. He denies loss of consciousness, dizziness, confusion, slurred speech and loss of balance. Post fall protocol #1 initiated. Dressing to laceration, tylenol 650mg tablet oral and ice pack to swelling ordered. V/S B/P 156/90, HR 53, RR 18, T97.7. Patient is to be transferred to ER for head CT scan and evaluation. Endorsed to Dr. Reyes.
--- NOTE | 2017-05-10 10:49 | PN ---
BHS Progress Note Note: PATIENT WAS NOT ON UNIT,BEING EVALUATED IN ER AT [facility] POST HEAD INJURY
[2017-05-10] MEDS: NICOTINE 21 MG/24 HOURS TOPICAL PATCH TD SCH (12:41)
[2017-05-10] MEDS: PRENATAL VITAMINS W/ FOLIC ACID TABLET (FP) PO SCH (12:41)
[2017-05-10] MEDS: risperiDONE 2 MG TABLET PO SCH ×2 (12:41→22:19)
--- NOTE | 2017-05-10 14:42 | PN ---
BHS Progress Note (SOAP) Subjective: patient is medically clear by [facility] er to return for continuing treatment ct of head negative Objective: 05/10/17 14:41 Vital Signs Temperature 97.3 F L 05/10/17 14:10 Pulse Rate 51 L 05/10/17 14:10 Respiratory Rate 20 05/10/17 14:10 Blood Pressure 151/90 05/10/17 14:10 O2 Sat by Pulse Oximetry (%) Assessment: 05/10/17 14:41 withdrawal symptom Plan: continue detox,fall protocol 1,close monitoring
[2017-05-10] MEDS: chlordiazePOXIDE HCL 10 MG CAPSULE PO SCH ×2 (17:34→22:38)
[2017-05-10] MEDS: BACITRACIN 0.9 GM PACKET TP SCH (22:18)
[2017-05-10] MEDS: THIAMINE HCL 100 MG TABLET (FP) PO SCH (22:18)
[2017-05-11] MEDS: chlordiazePOXIDE HCL 10 MG CAPSULE PO SCH (05:55)
--- NOTE | 2017-05-11 09:52 | DS ---
[facility] Detox Discharge Summary Admission Date: 05/07/17 Discharge Date: 05/11/17 - History Present History: Alcohol Dependence - Physical Exam Results Vital Signs: Vital Signs Temperature 97.9 F 05/11/17 05:30 Pulse Rate 50 L 05/11/17 05:30 Respiratory Rate 16 05/11/17 05:30 Blood Pressure 149/83 05/11/17 05:30 O2 Sat by Pulse Oximetry (%) Pertinent Admission Physical Exam Findings: withdrawal sx Vital Signs Temperature 97.9 F 05/11/17 05:30 Pulse Rate 50 L 05/11/17 05:30 Respiratory Rate 16 05/11/17 05:30 Blood Pressure 149/83 05/11/17 05:30 O2 Sat by Pulse Oximetry (%) Laboratory Last Values WBC 3.2 K/mm3 (4.0-10.0) L 05/07/17 15:00 RBC 4.79 M/mm3 (4.00-5.60) 05/07/17 15:00 Hgb 14.1 GM/dL (11.7-16.9) D 05/07/17 15:00 Hct 42.8 % (35.4-49) 05/07/17 15:00 MCV 89.3 fl (80-96) 05/07/17 15:00 MCH 29.5 pg (25.7-33.7) 05/07/17 15:00 MCHC 33.0 g/dl (32.0-35.9) 05/07/17 15:00 RDW 15.6 % (11.9-15.9) 05/07/17 15:00 Plt Count 258 K/MM3 (134-434) D 05/07/17 15:00 MPV 8.5 fl (7.5-11.1) 05/07/17 15:00 Sodium 140 mmol/L (136-145) 05/07/17 15:00 Potassium 4.1 mmol/L (3.5-5.1) 05/07/17 15:00 Chloride 105 mmol/L (98-107) 05/07/17 15:00 Carbon Dioxide 29 mmol/L (21-32) 05/07/17 15:00 Anion Gap 6 (8-16) L 05/07/17 15:00 BUN 9 mg/dL (7-18) D 05/07/17 15:00 Creatinine 1.1 mg/dL (0.7-1.3) 05/07/17 15:00 Creat Clearance w eGFR > 60 (>60) 05/07/17 15:00 Random Glucose 90 mg/dL (74-106) D 05/07/17 15:00 Calcium 8.5 mg/dL (8.5-10.1) 05/07/17 15:00 Total Bilirubin 0.5 mg/dL (0.2-1.0) D 05/07/17 15:00 AST 30 U/L (15-37) 05/07/17 15:00 ALT 22 U/L (12-78) 05/07/17 15:00 Alkaline Phosphatase 107 U/L (45-117) 05/07/17 15:00 Total Protein 7.1 g/dl (6.4-8.2) 05/07/17 15:00 Albumin 3.7 g/dl (3.4-5.0) 05/07/17 15:00 Urine Color Yellow 05/07/17 15:40 Urine Appearance Clear 05/07/17 15:40 Urine pH 5.0 (5.0-8.0) 05/07/17 15:40 Ur Specific [place] 1.024 (1.001-1.035) 05/07/17 15:40 Urine Protein Negative (NEGATIVE) 05/07/17 15:40 Urine Glucose (UA) Negative (NEGATIVE) 05/07/17 15:40 Urine Ketones Trace (NEGATIVE) H 05/07/17 15:40 Urine Blood Negative (NEGATIVE) 05/07/17 15:40 Urine Nitrite Negative (NEGATIVE) 05/07/17 15:40 Urine Bilirubin Negative (NEGATIVE) 05/07/17 15:40 Urine Urobilinogen 2.0 mg/dL (0.2-1.0) 05/07/17 15:40 Ur Leukocyte Esterase Negative (NEGATIVE) 05/07/17 15:40 RPR Titer Nonreactive (NONREACTIVE) 05/07/17 15:00 lab noted - Treatment Hospital Course: Detox Protocol Followed, Detoxed Safely, Responded well, Discharged Condition Good Patient has Accepted a Rehab Referral to: ps[facility] - Medication Discharge Medications: Ambulatory Orders Risperidone [Risperdal -] 2 mg PO BID #60 tablet 05/08/17 - Diagnosis (1) Alcohol dependence with uncomplicated withdrawal Current Visit: Yes Status: Acute (2) Nicotine dependence Current Visit: Yes Status: Acute Qualifiers: Nicotine product type: cigarettes Substance use status: in withdrawal Qualified Code(s): F17.213 - Nicotine dependence, cigarettes, with withdrawal - AMA Did Patient Leave Against Medical Advice: No
[2017-05-11] MEDS: risperiDONE 2 MG TABLET PO SCH (09:58)
[2017-05-11] MEDS: PRENATAL VITAMINS W/ FOLIC ACID TABLET (FP) PO SCH (09:58)
[2017-05-11] MEDS: BACITRACIN 0.9 GM PACKET TP SCH (09:58)
[2017-05-11 11:01] VITALS: BP 134/80; PULSE 64; TEMP 97.3
== END 2017-05-11 10:09 | disposition home or self-care (01) | DRG 897 ==
LOC: YASAS 11:39 → Y6N 14:55
PROVIDERS: ADMIT Internal Medicine; ATTEND Internal Medicine
PROC: HZ2ZZZZ Detoxification Services for Substance Abuse Treatment (ICD-10-PCS; principal; 2017-05-07)
DX: F10.230 Alcohol dependence with withdrawal, uncomplicated (principal); F14.20 Cocaine dependence, uncomplicated; F20.0 Paranoid schizophrenia; F17.213 Nicotine dependence, cigarettes, with withdrawal; F19.24 Other psychoactive substance dependence with psychoactive substance-induced mood disorder; Z87.438 Personal history of other diseases of male genital organs
CPT/HCPCS: 36415; 80053; 81003; 85027; 86593; 93005; 93010

== ENCOUNTER 2017-05-10 07:12 | Emergency (ER) | payer OTHER ==
--- NOTE | 2017-05-10 07:24 | PDOC ---
Attending Attestation - HPI HPI: 05/10/17 07:40 The patient is a 52 year old male, with a significant past medical history of ETOH abuse and Cocaine use, who presents to the emergency department BIBA s/p mechanical fall at [facility] earlier this morning. The patient reports he was getting out of bed to have his vitals done and Methadone administered. While standing, patient reports he slipped, fell and hit his head. The patient reports a slight headache, dizziness, and leg weakness(not part of baseline) s/ p fall, but is unsure whether he lost consciousness and denies any difficulty ambulating, lightheadedness, or changes in vision. He denies any chest pain, shortness of breath, diaphoresis, palpitations, or lower extremity edema. He denies any abdominal pain, nausea, vomiting, changes in bowel movements, or changes in urination. He denies any fever or chills. Patient is at [facility] for ETOH and cocaine detox. Allergies: Penicillins Past Surgical History: None reported Social History: ETOH abuse. Cocaine use. Current everyday smoker. - Physicial Exam PE: 05/10/17 07:48 Vitals: Triage Vital signs reviewed General Appearance: no acute distress, well nourished well developed, Head: Atraumatic, normocephalic Eyes: Pupils equal reactive round, extraocular movement intact Ears: TM's normal bilaterally; Nose: Nares patent bilaterally; no nasal congestion Throat: Posterior oropharynx without erythema, mucous membranes moist, Neck: Supple;No Nuchal rigidity Chest Wall: Nontender Cardiac: Regular rate and rhythm, no murmurs, no rubs, no gallops, Lungs: Clear to auscultation bilateral, good air movement bilaterally, Abdomen: Soft, nondistended, normal bowel sounds, nontender to palpation Extremities: Full range of motion to all extremities, no cyanosis, clubbing, or edema Skin: Warm and dry, no rashes or lesions, no petechiae Neuro: AOX3; Cranial Nerves 2-12 grossly c intact, Strength intact to all extremities, Sensation intact to all extremities, gait normal Psych: normal mood, normal affect - Medical Decision Making 05/10/17 07:40 EXAM: Head CT INTERPRETED BY: Dr. Villa REVIEWED BY: Dr. Oliveros IMPRESSION: Minimal volume loss which is nonspecific. Otherwise, no evidence of a focal intracranial lesion or hemorrhage seen. Left orbital medial wall fracture, likely old. Mild bilateral maxillary antra chronic sinusitis Documentation prepared by Johan San, acting as medical front desk coordinator for Derik Oliveros MD. <Johan San - Last Filed: 05/10/17 10:13> - Resident Resident Name: Sami Corbin - ED Attending Attestation I have performed the following: I have examined & evaluated the patient, The case was reviewed & discussed with the resident, I agree w/resident's findings & plan, Exceptions are as noted - Medical Decision Making 05/10/17 11:44 Well-appearing no apparent distress patient states mechanical slip and fall this morning. No prodrome of headache dizziness chest pain shortness of breath. Patient states he felt a little dizzy after falling and felt a little bit generally weak. Able to ambulatory around the emergency department with a nonfocal neurologic examination. His EKG was unchanged from a baseline EKG. His labs are unremarkable. Status post 1 L fluid and meal patient states he feels much better. We'll discharge back to [place] care. <Derik Oliveros - Last Filed: 05/10/17 15:33>
--- NOTE | 2017-05-10 07:31 | PDOC ---
History of Present Illness - General Chief Complaint: Injury Stated Complaint: HEAD INJURY Time Seen by Provider: 05/10/17 07:18 - History of Present Illness Initial Comments: 05/10/17 07:33 The patient is a 52 year old male with a history of schizophrenia, alcohol abuse , cocaine abuse who presents from [facility] for evaluation following a head injury. The patient reports that he slipped while getting out of bed this morning and struck his head with a brief moment of LOC. He denied any chest pain, SOB, palpitations, lightheadedness at the time of the fall and currently denies any of those symptoms. He denies any other injuries, difficulty walking , fevers, chills, nausea, vomiting, abdominal pain, or changes with urination or bowel movements. Past History - Past Medical History Allergies/Adverse Reactions: Allergies Allergy/AdvReac Type Severity Reaction Status Date / Time Penicillins Allergy Intermediate Hives Verified 05/10/17 07:22 Home Medications: Ambulatory Orders Risperidone [Risperdal -] 2 mg PO BID #60 tablet 05/08/17 Anemia: No Asthma: No Cancer: No Cardiac Disorders: No CVA: No COPD: No CHF: No Dementia: No Diabetes: No GI Disorders: No Disorders: No HTN: No Hypercholesterolemia: No Kidney Stones: No Liver Disease: No Seizures: No Thyroid Disease: No - Surgical History Abdominal Surgery: No Appendectomy: No Cardiac Surgery: No Cholecystectomy: No Lung Surgery: No Neurologic Surgery: No Orthopedic Surgery: No - Reproductive History Testicular Surgery: No - Suicide/Smoking/Psychosocial Hx Smoking History: Current every day smoker Have you smoked in the past 12 months: Yes Number of Cigarettes Smoked Daily: 20 Cigars Per Day: 0 'Breaking Loose' booklet given: 05/07/17 Hx Alcohol Use: Yes (BEER/VODKA) Drug/Substance Use Hx: Yes (COCAINE) Substance Use Type: Alcohol, Cocaine Hx Substance Use Treatment: Yes (LAST TX AT [facility] DETOX) Review of Systems - Review of Systems Comments:: 05/10/17 07:35 Constitutional: No fevers, chills, fatigue, malaise HEENT: Head trauma. No Rhinorrhea, nasal congestion, visual changes Cardiovascular: No chest pain, syncope, palpitations, lightheadedness Respiratory: No Cough, SOB, Hemoptysis, Gastrointestinal: No Abdominal pain, Nausea, Vomiting, Constipation, Diarrhea, Melena Genitourinary: No Dysuria, Frequency, Urgency, Hesitancy, Hematuria, Flank pain Musculoskeletal: No Myalgia, arthralgia Skin: No rashes, itching, bruising, pallor Neurologic: No Headache, Dizziness, Numbness, Weakness, or Tingling Psychiatric: No Hallucinations. No SI or HI *Physical Exam - Physical Exam Comments: 05/10/17 07:36 General Appearance: Nourished. No Apparent Distress HEENT: EOMI, YOKASTA. 1cm superficial abrasion to the left forehead. No Pharyngeal Erythema, Tonsillar Exudate, Tonsillar Erythema Neck: No Cervical Lymphadenopathy Respiratory/Chest: Lungs Clear, Normal Breath Sounds. No Crackles, Rales, Rhonchi, Wheezing Cardiovascular: Regular Rhythm, Regular Rate. No Murmur, Gallops, Rubs Gastrointestinal/Abdominal: Normal Bowel Sounds, Soft. No Guarding, Rebound, Tenderness Musculoskeletal: No CVA Tenderness Extremity: Normal Capillary Refill Integumentary: Normal Color, Dry, Warm Neurologic: hand heel seat fitter II-XII NML intact, Fully Oriented, Alert, Normal Mood/Affect, Normal Response, Motor Strength 5/5. Normal Finger to Nose and Heel to [place]. Normal gait. ED Treatment Course - LABORATORY CBC & Chemistry Diagram: 05/10/17 04:04 05/10/17 04:04 - RADIOLOGY Radiology Studies Ordered: Category Date Time Status HEAD CT WITHOUT CONTRAST [CT] Stat CT Scan 05/10/17 07:30 Ordered Medical Decision Making - Medical Decision Making 05/10/17 07:37 The patient is a 52 year old male with a history of schizophrenia, alcohol abuse , cocaine abuse who presents from [facility] for evaluation following a head injury. Given the patient's history and lack of other symptoms, it is likely his fall was mechenical in nature. The patient has a normal physical exam and appears clinically well on exam, however we will obtain a head ct to evaluate further. We will continue to monitor and reassess. 05/10/17 12:[address] does not demonstrate any acute process as read by our radiologist. Lab results are unremarkable. We are comfortable discharging the patient home at this time. We discussed with the facility Dr. Velasquez who accepted the patient back. We discussed the results and the plan with the patient who voiced understanding and is agreeable with the plan. *DC/Admit/Observation/Transfer Diagnosis at time of Disposition: Head injury Qualifiers: Encounter type: initial encounter Qualified Code(s): S09.90XA - Unspecified injury of head, initial encounter - Discharge Dispostion Disposition: HOME Condition at time of disposition: Improved Admit: No - Referrals - Patient Instructions Printed Discharge Instructions: DI for Contusion Additional Instructions: Please return to the ER if you experience concerning or worsening symptoms including worsening headache, chest pain, or difficulty breathing. Your lab results and ct scan were normal here in the ER. Please call to schedule a follow up appointment with your primary care provider withing 1 week discuss your ER visit. You have been medically cleared to return to detox. - Post Discharge Activity
[2017-05-10 07:43] VITALS: BMI 24.4
[2017-05-10] MEDS ORDERED: SODIUM CHLORIDE 0.9% 1000 ML INFUS.BAG IV ONE (07:49)
[2017-05-10 08:29] LABS: BASO % 0.9 % (0-2.0); EOS % 2.8 % (0-4.5); HEMATOCRIT 40.5 % (35.4-49); HEMOGLOBIN 13.3 GM/dL (11.7-16.9); LYMPH % 44.9 % (8-40); MCHC 32.7 g/dl (32.0-35.9); MEAN CELL VOLUME 88.7 fl (80-96); MEAN PLT VOLUME 8.5 fl (7.5-11.1); MONO % 10.3 % (3.8-10.2); NEUT % 41.1 % (42.8-82.8); PLATELET COUNT 204 K/MM3 (134-434); RBC 4.57 M/mm3 (4.00-5.60); RDW 15.5 % (11.9-15.9)
[2017-05-10 08:41] LABS: ANION GAP 8 (8-16); BLOOD UREA NITROGEN 8 mg/dL (7-18); CALCIUM 8.3 mg/dL (8.5-10.1); CHLORIDE 107 mmol/L (98-107); CO2 27 mmol/L (21-32); CREATININE 0.9 mg/dL (0.7-1.3); GLUCOSE,RANDOM 90 mg/dL (74-106); POTASSIUM 4.1 mmol/L (3.5-5.1); SODIUM 142 mmol/L (136-145)
[2017-05-10 12:31] VITALS: TEMP 97.7
[2017-05-10 13:29] VITALS: BP 150/81; PULSE 65
--- NOTE | 2017-05-11 11:36 | EKG ---
Test Reason : Blood Pressure : / mmHG Vent. Rate : 045 BPM Atrial Rate : 045 BPM P-R Int : 154 ms QRS Dur : 102 ms QT Int : 494 ms P-R-T Axes : 054 062 057 degrees QTc Int : 427 ms SINUS BRADYCARDIA MODERATE VOLTAGE CRITERIA FOR LVH, MAY BE NORMAL VARIANT ST ELEVATION, CONSIDER EARLY REPOLARIZATION, PERICARDITIS, OR INJURY T WAVE ABNORMALITY, CONSIDER ANTERIOR ISCHEMIA ABNORMAL ECG WHEN COMPARED WITH ECG OF 08-MAY-2017 09:11, NO SIGNIFICANT CHANGE WAS FOUND Confirmed by VERNA OLEARY MD ([id number]) on 05/11/2017 11:35:42 AM Referred By: Confirmed By:VERNA OLEARY MD
== END 2017-05-10 13:56 | disposition home or self-care (01) ==
LOC: JER 07:12
DX: S09.8XXA Other specified injuries of head, initial encounter (principal); S00.81XA Abrasion of other part of head, initial encounter; W06.XXXA Fall from bed, initial encounter; Y93.89 Activity, other specified; Y92.230 Patient room in hospital as the place of occurrence of the external cause; F10.10 Alcohol abuse, uncomplicated; F14.20 Cocaine dependence, uncomplicated; F20.9 Schizophrenia, unspecified; F17.210 Nicotine dependence, cigarettes, uncomplicated
CPT/HCPCS: 36415; 70450-TC; 80048; 82550; 84484; 85025; 93005; 93010; 99284-25

== ENCOUNTER 2019-05-12 13:30 | Inpatient (IN) | payer OTHER ==
[2019-05-12 16:55] VITALS: BMI 20.7
--- NOTE | 2019-05-12 20:15 | HP ---
CIWA Score Nausea/Vomitin-Mild Nausea/No Vomiting Muscle Tremors: 4-Moderate,w/Arms Extend Anxiety: 3 Agitation: 0-Normal Activity Paroxysmal Sweats: 3 (Increased facial moisture) Orientation: 0-Oriented Tacttile Disturbances: 0-None Auditory Disturbances: 0-None Visual Disturbances: 0-None Headache: 3-Moderate CIWA-Ar Total Score: 14 - Admission Criteria OASAS Guidelines: Admission for Medically Managed Detox: Requires at least one of the followin. CIWA greater than 12 2. Seizures within the past 24 hours 3. Delirium tremens within the past 24 hours 4. Hallucinations within the past 24 hours 5. Acute intervention needed for co occurring medical disorder 6. Acute intervention needed for co occurring psychiatric disorder 7. Severe withdrawal that cannot be handled at a lower level of care (continued vomiting, continued diarrhea, abnormal vital signs) requiring intravenous medication and/or fluids 8. Patient presents the following: CIWA greater than 12 (Hx Schizophrenia) Admission Criteria Met: Admission criteria met Admitting History and Physical - Smoking History Smoking history: Current every day smoker Have you smoked in the past 12 months: Yes Aproximately how many cigarettes per day: 20 - Alcohol/Substance Use Hx Alcohol Use: Yes (BEER/VODKA) Admission ROS [facility] Chief Complaint: States I'm here to get sober. I'm losing responsibilities. I need to be more responsible. Allergies/Adverse Reactions: Allergies Allergy/AdvReac Type Severity Reaction Status Date / Time Penicillins Allergy Intermediate Hives Verified 05/12/19 16:44 History of Present Illness: 54 yo presents w/ alcohol withdrawal seeking detox. Longest sobriety = 5 years from 91'-96' Denies seizures or overdoses. Last blackout 3 weeks ago. Alcohol use began at age 14. Currently drinks 6- 12 oz cans beer. Last drink this am. Cocaine use began at age 24. Currently using $50 every other days. L:st used Last [place] @ [place] Nicotine use began at age 19. Smokes 1 PPD. Denies other drugs. PMHx: Heart burn Prior RPR's non-reactive @ [facility] MHHx: Schizophrenia. Depression. Last saw Psych this a.m. @ [facility] and was referred to [facility]. States compliant w/ Risperidone. Denies thoughts of harming self or others. SHx: Domiciled. Unemployed. Denies legal issues. Search Terms: Jovani Blum, 1965 Search Date: 05/12/2019 08:08:25 PM The Drug Utilization Report below displays all of the controlled substance prescriptions, if any, that your patient has filled in the last twelve months. The information displayed on this report is compiled from pharmacy submissions to the Department, and accurately reflects the information as submitted by the pharmacies. This report was requested by: Consuelo Kimbrough | Reference #: [id number] There are no results for the search terms that you entered. Exam Limitations: No Limitations - Ebola screening Have you traveled outside of the country in the last 21 days: No Have you had contact with anyone from an Ebola affected area: No Have you been sick,other than usual withdrawal symptoms: No Do you have a fever: No - Review of Systems Constitutional: Diaphoresis, Unexplained wgt Loss EENT: reports: Blurred Vision, Dental Problems (Cavities. Chews and swallows ok. ) Respiratory: reports: No Symptoms reported Cardiac: reports: No Symptoms Reported GI: reports: Diarrhea (watery, yellowish green), Nausea : reports: No Symptoms Reported Musculoskeletal: reports: Back Pain (Intermittent back pain. Current achy pain "5" now. Increases w/ standing or walking too much. Improves w/ rest.) Integumentary: reports: No Symptoms Reported Neuro: reports: Headache (Temporal dull headache "7") Endocrine: reports: Increased Hunger Hematology: reports: No Symptoms Reported Psychiatric: reports: Judgement Intact, Orientated x3, Anxious, Depressed ( Denies thoughts of harming self or others.) Patient History - Patient Medical History Hx Anemia: No Hx Asthma: No Hx Chronic Obstructive Pulmonary Disease (COPD): No Hx Cancer: No Hx Cardiac Disorders: No Hx Congestive Heart Failure: No Hx Hypertension: No Hx Hypercholesterolemia: No Hx Pacemaker: No HX Cerebrovascular Accident: No Hx Seizures: No Hx Dementia: No Hx Diabetes: No Hx Gastrointestinal Disorders: No Hx Liver Disease: No Hx Genitourinary Disorders: No Hx Sexually Transmitted Disorders: Yes (SYPHILIS HX AND TX) Hx Renal Disease (ESRD): No Hx Thyroid Disease: No Hx Human Immunodeficiency Virus (HIV): No Hx Hepatitis C: No Hx Depression: Yes (MEDS IN THE PAST ;NOT CURRENTLY ON MEDS) Hx Suicide Attempt: No (DENIES) Hx Bipolar Disorder: No Hx Schizophrenia: Yes - Patient Surgical History Past Surgical History: No Hx Neurologic Surgery: No Hx Cataract Extraction: No Hx Cardiac Surgery: No Hx Lung Surgery: No Hx Breast Surgery: No Hx Breast Biopsy: No Hx Abdominal Surgery: No Hx Appendectomy: No Hx Cholecystectomy: No Hx Genitourinary Surgery: No Hx Section: No Hx Orthopedic Surgery: No Anesthesia Reaction: No - PPD History Previous Implant?: Yes Documented Results: Negative w/proof Implanted On Prior [facility] Admission?: Yes Date: 04/11/17 PPD to be Administered?: Yes - Smoking Cessation Smoking history: Current every day smoker Have you smoked in the past 12 months: Yes Aproximately how many cigarettes per day: 20 Cigars Per Day: 0 Hx Chewing Tobacco Use: No Initiated information on smoking cessation: Yes 'Breaking Loose' booklet given: 05/12/19 - Substance & Tx. History Hx Alcohol Use: Yes Hx Substance Use: Yes Substance Use Type: Alcohol, Cocaine Hx Substance Use Treatment: Yes (detox, ) - Substances abused Cocaine Other (specify): crack Substance route: Smoking Frequency: Daily Amount used: 25 dollars Age of first use: 24 Date of last use: 05/11/19 Alcohol Substance route: Oral Frequency: Daily Amount used: 7 cans of beer Age of first use: 14 Date of last use: 05/12/19 Admission Physical Exam BHS - Vital Signs Vital Signs: Vital Signs - 24 hr 05/12/19 05/12/19 16:43 18:25 Temperature 97.2 F L 97.2 F L Pulse Rate 63 63 Respiratory 16 16 Rate Blood Pressure 111/68 111/68 - Physical General Appearance: Yes: Mild Distress, Thin, Tremorous, Sweating (Increased facial moisture), Anxious HEENTM: Yes: EOMI (Jerking movement upon lateral gaze), Hearing grossly Normal, YOKASTA, Other (Perforated nasal septum) Respiratory: Yes: Lungs Clear (Pulse ox = 99 %), Normal Breath Sounds, No Respiratory Distress Neck: Yes: No masses,lesions,Nodules, Supple Breast: Yes: Breast Exam Deferred Cardiology: Yes: Regular Rhythm, Regular Rate, Murmur Abdominal: Yes: Flat, Soft, Increased Bowel Sounds, Tenderness ((L) upper quad mild tenderness upon palpation. No guarding. 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 NML intact (Jerking movement upon lateral gaze), Fully Oriented, Alert, Motor Strength 5/5, Normal Response Integumentary: Yes: Normal Color, Warm, Moist (Increased facial moisture) Lymphatic: Yes: Within Normal Limits - Diagnostic (1) Unspecified nystagmus Current Visit: Yes Status: Acute (2) Heart burn Current Visit: Yes Status: Chronic (3) Alcohol dependence with uncomplicated withdrawal Current Visit: Yes Status: Acute (4) Cocaine dependence, uncomplicated Current Visit: Yes Status: Chronic (5) Nicotine dependence Current Visit: Yes Status: Chronic Qualifiers: Nicotine product type: cigarettes Substance use status: in withdrawal Qualified Code(s): F17.213 - Nicotine dependence, cigarettes, with withdrawal (6) Cardiac murmur Current Visit: Yes Status: Suspected (7) Perforated nasal septum Current Visit: Yes Status: Chronic Cleared for Admission S - Detox or Rehab [facility] Level of Care: Medically Managed Detox Regimen/Protocol: Librium Claeared for Rehab Admission: No Breathalyzer - Breathalyzer Breathalyzer: 0 Urine Drug Screen - Test Device Lot number: [id number] Expiration date: 12/01/20 - Control Is test valid?: Yes - Results Drug screen NEGATIVE: No Urine drug screen results: ELYSIA-Cocaine Inpatient Rehab Admission - Rehab Decision to Admit Inpatient rehab admission?: No
[2019-05-12] MEDS ORDERED: MAGNESIUM CITRATE 300 ML BOTTLE PO PRN (20:40)
[2019-05-12] MEDS ORDERED: NICOTINE POLACRILEX 2 MG GUM BUC PRN (20:40)
[2019-05-12] MEDS ORDERED: MENTHOL/PHENOL 1 EACH UD MM PRN (20:40)
[2019-05-12] MEDS ORDERED: chlordiazePOXIDE HCL 10 MG CAPSULE PO PRN (20:40)
[2019-05-12] MEDS ORDERED: ACETAMINOPHEN 325 MG TABLET (FP) PO PRN ×2 (20:40)
[2019-05-12] MEDS ORDERED: PROCHLORPERAZINE MALEATE 5 MG TABLET PO PRN (20:40)
[2019-05-12] MEDS ORDERED: BISMUTH SUBSALICYLATE 524 MG/30 ML UD PO PRN (20:40)
[2019-05-12] MEDS ORDERED: MAGNESIUM HYDROX 2400MG/30ML ORAL SUSPENSION 30 ML CUP PO PRN (20:40)
[2019-05-12] MEDS ORDERED: IBUPROFEN 400 MG TABLET (FP) PO PRN (20:40)
[2019-05-12] MEDS ORDERED: METHOCARBAMOL 500 MG TABLET PO PRN (20:40)
[2019-05-12] MEDS ORDERED: MAG HYDROX/AL HYDROX/SIMETH 30 ML UNIT-DOSE CUP PO PRN (20:40)
[2019-05-12] MEDS: MELATONIN 5 MG TABLETS PO PRN (22:34)
[2019-05-12] MEDS: THIAMINE HCL 100 MG TABLET (FP) PO SCH (22:35)
[2019-05-12] MEDS: chlordiazePOXIDE HCL 25 MG CAPSULE PO SCH (22:35)
[2019-05-13] MEDS: chlordiazePOXIDE HCL 25 MG CAPSULE PO SCH ×3 (05:39→21:31)
[2019-05-13] MEDS: NICOTINE 21 MG/24 HOURS TOPICAL PATCH TD SCH (10:35)
[2019-05-13] MEDS: PRENATAL VITAMINS W/ FOLIC ACID TABLET (FP) PO SCH (10:35)
[2019-05-13 10:49] LABS: HEMATOCRIT 38.5 % (35.4-49); HEMOGLOBIN 12.6 GM/dL (11.7-16.9); MCH 29.1 pg (25.7-33.7); MCHC 32.6 g/dl (32.0-35.9); MEAN CELL VOLUME 89.3 fl (80-96); MEAN PLT VOLUME 8.9 fl (7.5-11.1); PLATELET COUNT 260 K/MM3 (134-434); RBC 4.32 M/mm3 (4.00-5.60); WHITE BLOOD COUNT 2.9 K/mm3 (4.0-10.0)
[2019-05-13 11:00] LABS: BILIRUBIN,TOTAL 0.3 mg/dL (0.2-1); BLOOD UREA NITROGEN 18.2 mg/dL (7-18); CALCIUM 8.5 mg/dL (8.5-10.1); CREATININE 0.9 mg/dL (0.55-1.3); POTASSIUM 4.5 mmol/L (3.5-5.1)
--- NOTE | 2019-05-13 11:43 | CONSULT ---
[facility] Psychiatric Consult - Data Date of interview: 05/13/19 Admission source: [facility] Identifying data: Patient is a 54 year old single male, father of four, unemployed, domiciled, and is supported by [facility]. This is one of multiple admissions for patient. Patient admitted to for alcohol and cocaine dependence. Substance Abuse History: Smoking Cessation. Smoking history: Current every day smoker. Have you smoked in the past 12 months: Yes. Aproximately how many cigarettes per day: 20. Cigars Per Day: 0. Hx Chewing Tobacco Use: No. Initiated information on smoking cessation: Yes. 'Breaking Loose' booklet given : 05/12/19. - Substance & Tx. History. Hx Alcohol Use: Yes. Hx Substance Use : Yes. Substance Use Type: Alcohol, Cocaine. Hx Substance Use Treatment: Yes ( detox, ). - Substances abused. Cocaine. Other (specify): crack. Substance route: Smoking. Frequency: Daily. Amount used: 25 dollars. Age of first use: 24. Date of last use: 05/11/19. Alcohol. Substance route: Oral. Frequency: Daily. Amount used: 7 cans of beer. Age of first use: 14. Date of last use: 05/12/19 Medical History: History of Syphilis Psychiatric History: Mr. Blum was first diagnosed with schizophrenia in 1991 after exhibiting onset disturbances of auditory hallucinations. He reports additional hospitalizations at [facility] in 1995 and most recently three years ago after hearing voices. Patient is currently provided with outpatient psychiatric care at the [facility] and reports being prescribed risperdal 3mg HS. Reports most recently taking risperdal two nights ago as he did not receive it last night. Patient denies history of suicide attempt. At present patient denies auditory/visual hallucinations and paranoid ideation. Physical/Sexual Abuse/Trauma History: denies. Mental Status Exam - Mental Status Exam Alert and Oriented to: Time, Place, Person Cognitive Function: Good Patient Appearance: Well Groomed Mood: Withdrawn Affect: Appropriate Patient Behavior: Appropriate, Cooperative Speech Pattern: Clear Voice Loudness: Normal Thought Process: Goal Oriented Thought Disorder: Not Present Hallucinations: Denies Suicidal Ideation: Denies Homicidal Ideation: Denies Insight/Judgement: Poor Sleep: Fair Appetite: Fair Muscle strength/Tone: Normal Gait/Station: Normal Psychiatric Findings - Problem List ([place] 1, 2,3) (1) Alcohol dependence with uncomplicated withdrawal Current Visit: Yes Status: Acute (2) Cocaine dependence, uncomplicated Current Visit: Yes Status: Chronic (3) Schizophrenia Current Visit: Yes Status: Chronic - Initial Treatment Plan Initial Treatment Plan: Psychoeducation provided. Detoxification in progress. Will order Risperdal 3mg HS. Benefits and side effects discussed. Verbal consent given.
--- NOTE | 2019-05-13 11:53 | EKG ---
Test Reason : Blood Pressure : / mmHG Vent. Rate : 055 BPM Atrial Rate : 055 BPM P-R Int : 140 ms QRS Dur : 090 ms QT Int : 536 ms P-R-T Axes : 058 074 080 degrees QTc Int : 512 ms SINUS BRADYCARDIA MINIMAL VOLTAGE CRITERIA FOR LVH, MAY BE NORMAL VARIANT ST ELEVATION, CONSIDER EARLY REPOLARIZATION, PERICARDITIS, OR INJURY MARKED T WAVE ABNORMALITY, CONSIDER ANTERIOR ISCHEMIA PROLONGED QT ABNORMAL ECG WHEN COMPARED WITH ECG OF 10-MAY-2017 09:39, T WAVE INVERSION MORE EVIDENT IN ANTERIOR LEADS QT HAS LENGTHENED Confirmed by HAWK KIMBLE MD ([id number]) on 05/13/2019 11:53:31 AM Referred By: Confirmed By:HAWK KIMBLE MD
--- NOTE | 2019-05-13 12:28 | PN ---
[facility] CIWA - CIWA Score Nausea/Vomitin-No Nausea/No Vomiting Muscle Tremors: 4-Moderate,w/Arms Extend Anxiety: 0-No Anxiety, at Ease Agitation: 2 Paroxysmal Sweats: 2 Orientation: 0-Oriented Tacttile Disturbances: 1-Very Mild Itch/Numbness Auditory Disturbances: 0-None Visual Disturbances: 1-Very Mild Sensitivity Headache: 1-Very Mild CIWA-Ar Total Score: 11 S Progress Note (SOAP) Subjective: 54 years old male admitted on 05/12/19 for alcohol withdrawal sx management treaqting with librium detox regimen feeling ok today slept through the night encourage the patient to attend behavior and psychosocial therapies groups and meetings while in detox Objective: 05/13/19 12:29 Vital Signs Temperature 97.9 F 05/13/19 09:05 Pulse Rate 57 L 05/13/19 09:05 Respiratory Rate 18 05/13/19 09:05 Blood Pressure 122/78 05/13/19 09:05 O2 Sat by Pulse Oximetry (%) Laboratory Last Values WBC 2.9 K/mm3 (4.0-10.0) L 05/13/19 08:15 RBC 4.32 M/mm3 (4.00-5.60) 05/13/19 08:15 Hgb 12.6 GM/dL (11.7-16.9) 05/13/19 08:15 Hct 38.5 % (35.4-49) 05/13/19 08:15 MCV 89.3 fl (80-96) 05/13/19 08:15 MCH 29.1 pg (25.7-33.7) 05/13/19 08:15 MCHC 32.6 g/dl (32.0-35.9) 05/13/19 08:15 RDW 17.0 % (11.9-15.9) H 05/13/19 08:15 Plt Count 260 K/MM3 (134-434) D 05/13/19 08:15 MPV 8.9 fl (7.5-11.1) 05/13/19 08:15 Sodium 140 mmol/L (136-145) 05/13/19 08:15 Potassium 4.5 mmol/L (3.5-5.1) 05/13/19 08:15 Chloride 109 mmol/L (98-107) H 05/13/19 08:15 Carbon Dioxide 26 mmol/L (21-32) 05/13/19 08:15 Anion Gap 5 MMOL/L (8-16) L 05/13/19 08:15 BUN 18.2 mg/dL (7-18) H 05/13/19 08:15 Creatinine 0.9 mg/dL (0.55-1.3) 05/13/19 08:15 Est GFR (CKD-EPI)AfAm 110.27 05/13/19 08:15 Est GFR (CKD-EPI)NonAf 95.14 05/13/19 08:15 Random Glucose 83 mg/dL (74-106) 05/13/19 08:15 Calcium 8.5 mg/dL (8.5-10.1) 05/13/19 08:15 Total Bilirubin 0.3 mg/dL (0.2-1) 05/13/19 08:15 AST 15 U/L (15-37) 05/13/19 08:15 ALT 18 U/L (13-61) 05/13/19 08:15 Alkaline Phosphatase 131 U/L (45-117) H 05/13/19 08:15 Total Protein 6.0 g/dl (6.4-8.2) L 05/13/19 08:15 Albumin 3.0 g/dl (3.4-5.0) L 05/13/19 08:15 RPR Titer Nonreactive (NONREACTIVE) 05/13/19 08:15 lab noted 05/13/19 12:31long history of schizoaffective disorder treated with antipsychotic medication with low wbc currently taking risperidal patient agrees to bringing in lab report to community mental health provider for follow up Assessment: 05/13/19 12:33 alcohol withdrawal Plan: librium regimen
[2019-05-13] MEDS: risperiDONE 3 MG TABLET PO SCH (21:34)
[2019-05-13] MEDS: THIAMINE HCL 100 MG TABLET (FP) PO SCH (21:34)
[2019-05-14] MEDS: chlordiazePOXIDE 5 MG CAPSULE PO SCH ×3 (05:06→22:29)
[2019-05-14] MEDS: PRENATAL VITAMINS W/ FOLIC ACID TABLET (FP) PO SCH (10:25)
[2019-05-14] MEDS: NICOTINE 21 MG/24 HOURS TOPICAL PATCH TD SCH (10:25)
--- NOTE | 2019-05-14 11:46 | PN ---
S CIWA - CIWA Score Nausea/Vomitin-Mild Nausea/No Vomiting Muscle Tremors: 2 Anxiety: 1-Mildly Anxious Agitation: 1-Slight > Activity Paroxysmal Sweats: 1-Minimal Palms Moist Orientation: 0-Oriented Tacttile Disturbances: 3-Moderate Itch/Numb/Burn Auditory Disturbances: 0-None Visual Disturbances: 0-None Headache: 1-Very Mild CIWA-Ar Total Score: 10 BHS Progress Note (SOAP) Subjective: 54 years old male admitted on 05/12/19 for alcohol withdrawal sx managementwith librium detox regimen feeling ok today O: Vital Signs - 24 hr 05/13/19 05/13/19 05/13/19 13:05 18:05 22:54 Temperature 97.5 F L 99.1 F 98.4 F Pulse Rate 63 68 59 L Respiratory 18 18 18 Rate Blood Pressure 115/76 129/84 137/82 05/14/19 05/14/19 05/14/19 00:30 03:30 06:07 Temperature 97.6 F Pulse Rate 55 L Respiratory 18 18 18 Rate Blood Pressure 146/76 05/14/19 09:03 Temperature 97.3 F L Pulse Rate 56 L Respiratory 18 Rate Blood Pressure 116/70 Laboratory Tests 05/13/19 05/13/19 05/13/19 08:15 08:15 08:15 WBC 2.9 L RBC 4.32 Hgb 12.6 Hct 38.5 MCV 89.3 MCH 29.1 MCHC 32.6 RDW 17.0 H Plt Count 260 D MPV 8.9 Sodium 140 Potassium 4.5 Chloride 109 H Carbon Dioxide 26 Anion Gap 5 L BUN 18.2 H Creatinine 0.9 Est GFR (CKD-EPI)AfAm 110.27 Est GFR (CKD-EPI)NonAf 95.14 Random Glucose 83 Calcium 8.5 Total Bilirubin 0.3 AST 15 ALT 18 Alkaline Phosphatase 131 H Total Protein 6.0 L Albumin 3.0 L RPR Titer Nonreactive a/p: 54 years old male admitted on 05/12/19 for alcohol withdrawal sx management treaqting with librium detox regimen feeling ok today. 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
[2019-05-14] MEDS: THIAMINE HCL 100 MG TABLET (FP) PO SCH (22:29)
[2019-05-14] MEDS: risperiDONE 3 MG TABLET PO SCH (22:29)
[2019-05-15] MEDS ORDERED: chlordiazePOXIDE HCL 10 MG CAPSULE PO PRN
[2019-05-15] MEDS: chlordiazePOXIDE HCL 10 MG CAPSULE PO SCH ×3 (05:24→22:16)
[2019-05-15 09:53] LABS: URINE APPEARANCE CLEAR; URINE BILIRUBIN NEGATIVE (NEGATIVE); URINE COLOR YELLOW; URINE GLUCOSE (UA) NEGATIVE (NEGATIVE); URINE KETONE NEGATIVE (NEGATIVE); URINE LEUK ESTERASE NEGATIVE (NEGATIVE); URINE NITRITE NEGATIVE (NEGATIVE); URINE PROTEIN NEGATIVE (NEGATIVE); URINE UROBILINOGEN 0.2 mg/dL (0.2-1.0)
[2019-05-15] MEDS: PRENATAL VITAMINS W/ FOLIC ACID TABLET (FP) PO SCH (10:42)
[2019-05-15] MEDS: NICOTINE 21 MG/24 HOURS TOPICAL PATCH TD SCH (11:11)
--- NOTE | 2019-05-15 11:14 | PN ---
S CIWA - CIWA Score Nausea/Vomitin-No Nausea/No Vomiting Muscle Tremors: None Anxiety: 2 Agitation: 0-Normal Activity Paroxysmal Sweats: 2 Orientation: 0-Oriented Tacttile Disturbances: 0-None Auditory Disturbances: 0-None Visual Disturbances: 0-None Headache: 0-None Present CIWA-Ar Total Score: 4 BHS Progress Note (SOAP) Subjective: c/o mild withdrawal symptoms. Objective: 05/15/19 11:13 Vital Signs 05/15/19 05/15/19 05/15/19 03:30 06:47 09:20 Temperature 97.7 F 98.2 F Pulse Rate 66 58 L Respiratory 18 18 18 Rate Blood Pressure 139/81 140/87 Laboratory Last Values WBC 2.9 K/mm3 (4.0-10.0) L 05/13/19 08:15 RBC 4.32 M/mm3 (4.00-5.60) 05/13/19 08:15 Hgb 12.6 GM/dL (11.7-16.9) 05/13/19 08:15 Hct 38.5 % (35.4-49) 05/13/19 08:15 MCV 89.3 fl (80-96) 05/13/19 08:15 MCH 29.1 pg (25.7-33.7) 05/13/19 08:15 MCHC 32.6 g/dl (32.0-35.9) 05/13/19 08:15 RDW 17.0 % (11.9-15.9) H 05/13/19 08:15 Plt Count 260 K/MM3 (134-434) D 05/13/19 08:15 MPV 8.9 fl (7.5-11.1) 05/13/19 08:15 Sodium 140 mmol/L (136-145) 05/13/19 08:15 Potassium 4.5 mmol/L (3.5-5.1) 05/13/19 08:15 Chloride 109 mmol/L (98-107) H 05/13/19 08:15 Carbon Dioxide 26 mmol/L (21-32) 05/13/19 08:15 Anion Gap 5 MMOL/L (8-16) L 05/13/19 08:15 BUN 18.2 mg/dL (7-18) H 05/13/19 08:15 Creatinine 0.9 mg/dL (0.55-1.3) 05/13/19 08:15 Est GFR (CKD-EPI)AfAm 110.27 05/13/19 08:15 Est GFR (CKD-EPI)NonAf 95.14 05/13/19 08:15 Random Glucose 83 mg/dL (74-106) 05/13/19 08:15 Calcium 8.5 mg/dL (8.5-10.1) 05/13/19 08:15 Total Bilirubin 0.3 mg/dL (0.2-1) 05/13/19 08:15 AST 15 U/L (15-37) 05/13/19 08:15 ALT 18 U/L (13-61) 05/13/19 08:15 Alkaline Phosphatase 131 U/L (45-117) H 05/13/19 08:15 Total Protein 6.0 g/dl (6.4-8.2) L 05/13/19 08:15 Albumin 3.0 g/dl (3.4-5.0) L 05/13/19 08:15 Urine Color Yellow 05/15/19 08:10 Urine Appearance Clear 05/15/19 08:10 Urine pH 6.0 (5.0-8.0) 05/15/19 08:10 Ur Specific [place] 1.011 (1.010-1.035) 05/15/19 08:10 Urine Protein Negative (NEGATIVE) 05/15/19 08:10 Urine Glucose (UA) Negative (NEGATIVE) 05/15/19 08:10 Urine Ketones Negative (NEGATIVE) 05/15/19 08:10 Urine Blood Negative (NEGATIVE) 05/15/19 08:10 Urine Nitrite Negative (NEGATIVE) 05/15/19 08:10 Urine Bilirubin Negative (NEGATIVE) 05/15/19 08:10 Urine Urobilinogen 0.2 mg/dL (0.2-1.0) 05/15/19 08:10 Ur Leukocyte Esterase Negative (NEGATIVE) 05/15/19 08:10 RPR Titer Nonreactive (NONREACTIVE) 05/13/19 08:15 Labs noted. Assessment: 05/15/19 11:13 AOX3, in no acute respiratory distress. Full ROM, ambulating in the unit. Mild withdrawal symptoms. For d/c tomorrow. Plan: continue detox. D/C in AM.
[2019-05-15] MEDS: THIAMINE HCL 100 MG TABLET (FP) PO SCH (22:16)
[2019-05-15] MEDS: risperiDONE 3 MG TABLET PO SCH (22:16)
[2019-05-15] MEDS: MELATONIN 5 MG TABLETS PO PRN (22:17)
[2019-05-16] MEDS ORDERED: chlordiazePOXIDE HCL 10 MG CAPSULE PO ONE (05:00)
[2019-05-16 06:45] VITALS: TEMP 97.7
--- NOTE | 2019-05-16 08:59 | DS ---
[facility] Detox Discharge Summary Admission Date: 05/12/19 Discharge Date: 05/16/19 - History Present History: Alcohol Dependence Additional Comments: 54 years old male admitted on 05/12/19 for alcohol withdrawal sx management treated with librium detox regimen patient completed the detox regimen tolerated well alert oriented x 3 respiratory clear lungs bilaterally on auscultation extremities full range of motion skin warm and dry - Physical Exam Results Vital Signs: Vital Signs Temperature 97.7 F 05/16/19 06:44 Pulse Rate 63 05/16/19 06:44 Respiratory Rate 18 05/16/19 06:44 Blood Pressure 132/93 05/16/19 06:44 O2 Sat by Pulse Oximetry (%) Pertinent Admission Physical Exam Findings: alcohol withdrawal Laboratory Last Values WBC 2.9 K/mm3 (4.0-10.0) L 05/13/19 08:15 RBC 4.32 M/mm3 (4.00-5.60) 05/13/19 08:15 Hgb 12.6 GM/dL (11.7-16.9) 05/13/19 08:15 Hct 38.5 % (35.4-49) 05/13/19 08:15 MCV 89.3 fl (80-96) 05/13/19 08:15 MCH 29.1 pg (25.7-33.7) 05/13/19 08:15 MCHC 32.6 g/dl (32.0-35.9) 05/13/19 08:15 RDW 17.0 % (11.9-15.9) H 05/13/19 08:15 Plt Count 260 K/MM3 (134-434) D 05/13/19 08:15 MPV 8.9 fl (7.5-11.1) 05/13/19 08:15 Sodium 140 mmol/L (136-145) 05/13/19 08:15 Potassium 4.5 mmol/L (3.5-5.1) 05/13/19 08:15 Chloride 109 mmol/L (98-107) H 05/13/19 08:15 Carbon Dioxide 26 mmol/L (21-32) 05/13/19 08:15 Anion Gap 5 MMOL/L (8-16) L 05/13/19 08:15 BUN 18.2 mg/dL (7-18) H 05/13/19 08:15 Creatinine 0.9 mg/dL (0.55-1.3) 05/13/19 08:15 Est GFR (CKD-EPI)AfAm 110.27 05/13/19 08:15 Est GFR (CKD-EPI)NonAf 95.14 05/13/19 08:15 Random Glucose 83 mg/dL (74-106) 05/13/19 08:15 Calcium 8.5 mg/dL (8.5-10.1) 05/13/19 08:15 Total Bilirubin 0.3 mg/dL (0.2-1) 05/13/19 08:15 AST 15 U/L (15-37) 05/13/19 08:15 ALT 18 U/L (13-61) 05/13/19 08:15 Alkaline Phosphatase 131 U/L (45-117) H 05/13/19 08:15 Total Protein 6.0 g/dl (6.4-8.2) L 05/13/19 08:15 Albumin 3.0 g/dl (3.4-5.0) L 05/13/19 08:15 Urine Color Yellow 05/15/19 08:10 Urine Appearance Clear 05/15/19 08:10 Urine pH 6.0 (5.0-8.0) 05/15/19 08:10 Ur Specific [place] 1.011 (1.010-1.035) 05/15/19 08:10 Urine Protein Negative (NEGATIVE) 05/15/19 08:10 Urine Glucose (UA) Negative (NEGATIVE) 05/15/19 08:10 Urine Ketones Negative (NEGATIVE) 05/15/19 08:10 Urine Blood Negative (NEGATIVE) 05/15/19 08:10 Urine Nitrite Negative (NEGATIVE) 05/15/19 08:10 Urine Bilirubin Negative (NEGATIVE) 05/15/19 08:10 Urine Urobilinogen 0.2 mg/dL (0.2-1.0) 05/15/19 08:10 Ur Leukocyte Esterase Negative (NEGATIVE) 05/15/19 08:10 RPR Titer Nonreactive (NONREACTIVE) 05/13/19 08:15 lab noted low wbc patient agrees to bringing in lab report to [facility] for follow up - Treatment Hospital Course: Detox Protocol Followed, Detoxed Safely, Responded well, Discharged Condition Good, Rehab Referral Accepted Patient has Accepted a Rehab Referral to: [facility] - Medication Discharge Medications: Ambulatory Orders Risperidone [Risperdal -] 3 mg PO HS 05/12/19 - Diagnosis (1) Alcohol dependence with uncomplicated withdrawal Status: Acute (2) Nicotine dependence Status: Acute Qualifiers: Nicotine product type: cigarettes Substance use status: in withdrawal Qualified Code(s): F17.213 - Nicotine dependence, cigarettes, with withdrawal (3) Substance induced mood disorder Status: Suspected - AMA Did Patient Leave Against Medical Advice: No CIWA Score - CIWA Score Nausea/Vomitin-No Nausea/No Vomiting Muscle Tremors: None Anxiety: 1-Mildly Anxious Agitation: 0-Normal Activity Paroxysmal Sweats: 1-Minimal Palms Moist Orientation: 0-Oriented Tacttile Disturbances: 0-None Auditory Disturbances: 0-None Visual Disturbances: 0-None Headache: 0-None Present CIWA-Ar Total Score: 2
[2019-05-16 09:08] VITALS: BP 137/86; PULSE 73
== END 2019-05-16 09:42 | disposition home or self-care (01) | DRG 897 ==
LOC: YASAS 13:30 → Y3N 20:37
PROVIDERS: ADMIT Allergy & Immunology; ATTEND Allergy & Immunology
PROC: HZ2ZZZZ Detoxification Services for Substance Abuse Treatment (ICD-10-PCS; principal; 2019-05-12)
DX: F10.230 Alcohol dependence with withdrawal, uncomplicated (principal); F14.20 Cocaine dependence, uncomplicated; F17.213 Nicotine dependence, cigarettes, with withdrawal; F20.9 Schizophrenia, unspecified; F19.24 Other psychoactive substance dependence with psychoactive substance-induced mood disorder; F32.9 Major depressive disorder, single episode, unspecified; H55.00 Unspecified nystagmus; J34.89 Other specified disorders of nose and nasal sinuses; R12 Heartburn; R01.1 Cardiac murmur, unspecified; Z86.19 Personal history of other infectious and parasitic diseases; Z88.0 Allergy status to penicillin
CPT/HCPCS: 36415; 80053; 81003; 85027; 86593; 93005; 93010

== ENCOUNTER 2021-07-11 10:15 | Inpatient (IN) | payer OTHER ==
[2021-07-11] MEDS ORDERED: ACETAMINOPHEN 325 MG TABLET (FP) PO PRN ×2 (10:43)
[2021-07-11] MEDS ORDERED: MENTHOL/PHENOL 1 EACH UD MM PRN (10:43)
[2021-07-11] MEDS ORDERED: chlordiazePOXIDE HCL 25 MG CAPSULE PO PRN (10:43)
[2021-07-11] MEDS ORDERED: MAGNESIUM CITRATE 300 ML BOTTLE PO PRN (10:43)
[2021-07-11] MEDS ORDERED: IBUPROFEN 400 MG TABLET (FP) PO PRN (10:43)
[2021-07-11] MEDS ORDERED: LOPERAMIDE HCL 2 MG CAPSULE PO PRN (10:43)
[2021-07-11] MEDS ORDERED: ONDANSETRON *ODT* 4 MG TABLET SL PRN (10:43)
[2021-07-11] MEDS ORDERED: MAGNESIUM HYDROX 2400MG/30ML ORAL SUSPENSION 30 ML CUP PO PRN (10:43)
[2021-07-11] MEDS ORDERED: BISMUTH SUBSALICYLATE 262 MG/15 ML BTL PO PRN (10:43)
[2021-07-11] MEDS ORDERED: MAG HYDROX/AL HYDROX/SIMETH 30 ML UNIT-DOSE CUP PO PRN (10:43)
[2021-07-11] MEDS ORDERED: NICOTINE 10 MG CARTRIDGE (INHALER) IH PRN (10:43)
[2021-07-11 10:57] VITALS: BMI 21.2
[2021-07-11] MEDS: PRENATAL VITAMINS W/ FOLIC ACID TABLET (FP) PO SCH (12:24)
[2021-07-11] MEDS: chlordiazePOXIDE HCL 25 MG CAPSULE PO SCH ×3 (12:25→23:07)
[2021-07-11] MEDS: NICOTINE 14 MG/24 HOURS TOPICAL PATCH TD SCH (12:26)
[2021-07-11] MEDS: hydrOXYzine PAMOATE 25 MG CAPSULE (FP) PO SCH ×3 (14:14→23:07)
[2021-07-11 16:23] LABS: HEMATOCRIT 40.2 % (35.4-49); HEMOGLOBIN 13.4 GM/dL (11.7-16.9); MCH 28.9 pg (25.7-33.7); MCHC 33.3 g/dl (32.0-35.9); MEAN CELL VOLUME 86.7 fl (80-96); MEAN PLT VOLUME 7.8 fl (7.5-11.1); PLATELET COUNT 320 10^3/uL (134-434); RBC 4.64 M/mm3 (4.00-5.60); RDW 17.1 % (11.9-15.9); WHITE BLOOD COUNT 3.2 K/mm3 (4.0-10.0)
[2021-07-11 16:25] LABS: CALCIUM 9.1 mg/dL (8.5-10.1)
[2021-07-11 16:26] LABS: ALBUMIN 3.6 g/dl (3.4-5.0); BLOOD UREA NITROGEN 15.2 mg/dL (7-18)
[2021-07-11 16:27] LABS: CREATININE 1.1 mg/dL (0.55-1.3)
[2021-07-11 16:28] LABS: BILIRUBIN,TOTAL 1.7 mg/dL (0.2-1); TOT PROT 7.3 g/dl (6.4-8.2)
[2021-07-11] MEDS: THIAMINE HCL 100 MG TABLET (FP) PO SCH (23:07)
[2021-07-11] MEDS: MELATONIN 5 MG TABLETS PO SCH (23:09)
[2021-07-12] MEDS: chlordiazePOXIDE HCL 25 MG CAPSULE PO SCH ×4 (06:23→23:06)
[2021-07-12] MEDS: hydrOXYzine PAMOATE 25 MG CAPSULE (FP) PO SCH (08:36)
[2021-07-12] MEDS: PRENATAL VITAMINS W/ FOLIC ACID TABLET (FP) PO SCH (12:02)
[2021-07-12] MEDS: NICOTINE 14 MG/24 HOURS TOPICAL PATCH TD SCH (12:02)
[2021-07-12] MEDS: MELATONIN 5 MG TABLETS PO SCH (23:07)
[2021-07-12] MEDS: THIAMINE HCL 100 MG TABLET (FP) PO SCH (23:07)
[2021-07-13] MEDS: chlordiazePOXIDE HCL 25 MG CAPSULE PO SCH ×4 (06:48→22:00)
[2021-07-13] MEDS: PRENATAL VITAMINS W/ FOLIC ACID TABLET (FP) PO SCH (11:09)
[2021-07-13] MEDS: NICOTINE 14 MG/24 HOURS TOPICAL PATCH TD SCH (11:09)
[2021-07-13 14:08] LABS: SARS-CoV-2 NAA Not Detected (Not Detected)
[2021-07-13] MEDS: METHOCARBAMOL 500 MG TABLET PO PRN (21:59)
[2021-07-13] MEDS: MELATONIN 5 MG TABLETS PO SCH (22:00)
[2021-07-13] MEDS: THIAMINE HCL 100 MG TABLET (FP) PO SCH (22:00)
[2021-07-14] MEDS ORDERED: chlordiazePOXIDE HCL 10 MG CAPSULE PO PRN
[2021-07-14] MEDS: chlordiazePOXIDE HCL 10 MG CAPSULE PO SCH ×4 (07:07→23:16)
[2021-07-14] MEDS: PRENATAL VITAMINS W/ FOLIC ACID TABLET (FP) PO SCH (11:05)
[2021-07-14] MEDS: NICOTINE 14 MG/24 HOURS TOPICAL PATCH TD SCH (11:05)
[2021-07-14] MEDS: THIAMINE HCL 100 MG TABLET (FP) PO SCH (23:16)
[2021-07-14] MEDS: MELATONIN 5 MG TABLETS PO SCH (23:16)
[2021-07-15] MEDS: chlordiazePOXIDE HCL 10 MG CAPSULE PO SCH ×2 (06:47→18:23)
[2021-07-15] MEDS: PRENATAL VITAMINS W/ FOLIC ACID TABLET (FP) PO SCH (10:34)
[2021-07-15] MEDS: NICOTINE 14 MG/24 HOURS TOPICAL PATCH TD SCH (10:34)
[2021-07-15] MEDS: THIAMINE HCL 100 MG TABLET (FP) PO SCH (22:42)
[2021-07-15] MEDS: METHOCARBAMOL 500 MG TABLET PO PRN (22:42)
[2021-07-15] MEDS: MELATONIN 5 MG TABLETS PO SCH (22:42)
[2021-07-16] MEDS ORDERED: chlordiazePOXIDE HCL 10 MG CAPSULE PO ONE (05:00)
[2021-07-16] MEDS: PRENATAL VITAMINS W/ FOLIC ACID TABLET (FP) PO SCH (10:27)
[2021-07-16] MEDS: NICOTINE 14 MG/24 HOURS TOPICAL PATCH TD SCH (10:27)
[2021-07-16 12:47] VITALS: BP 132/75; PULSE 66; TEMP 97.8
== END 2021-07-16 13:27 | disposition home or self-care (01) | DRG 897 ==
LOC: YASAS 10:15 → Y3N 11:17
PROVIDERS: ADMIT Allergy & Immunology; ATTEND Allergy & Immunology
PROC: HZ2ZZZZ Detoxification Services for Substance Abuse Treatment (ICD-10-PCS; principal; 2021-07-11)
DX: F10.230 Alcohol dependence with withdrawal, uncomplicated (principal); F14.20 Cocaine dependence, uncomplicated; F20.0 Paranoid schizophrenia; F12.20 Cannabis dependence, uncomplicated; F17.210 Nicotine dependence, cigarettes, uncomplicated; F32.A Depression, unspecified; Z20.822 Contact with and (suspected) exposure to COVID-19; Z86.19 Personal history of other infectious and parasitic diseases; Z88.0 Allergy status to penicillin
CPT/HCPCS: 36415; 80053; 85027; 86593; 86780; 93005; 93010; C9803; U0003; U0005

== ENCOUNTER 2022-04-18 19:00 | Inpatient (IN) | payer OTHER ==
[2022-04-18 19:34] VITALS: BMI 22.3
[2022-04-18] MEDS ORDERED: hydrOXYzine PAMOATE 25 MG CAPSULE (FP) PO PRN (20:08)
[2022-04-18] MEDS ORDERED: POLYETHYLENE GLYCOL (HEALTHYLAX) 3350 17 GM PACKET PO PRN (20:08)
[2022-04-18] MEDS ORDERED: MAG HYDROX/AL HYDROX/SIMETH 30 ML UNIT-DOSE CUP PO PRN (20:08)
[2022-04-18] MEDS ORDERED: LOPERAMIDE HCL 2 MG CAPSULE PO PRN (20:08)
[2022-04-18] MEDS ORDERED: ONDANSETRON *ODT* 4 MG TABLET SL PRN (20:08)
[2022-04-18] MEDS ORDERED: IBUPROFEN 600 MG TABLET (FP) PO PRN (20:08)
[2022-04-18] MEDS ORDERED: guaiFENesin 200 MG/10 ML 10 ML UNIT-DOSE CUPS PO PRN (20:08)
[2022-04-18] MEDS ORDERED: BISMUTH SUBSALICYLATE 524 MG/30 ML PO PRN (20:08)
[2022-04-18] MEDS ORDERED: BENZOCAINE/MENTHOL (CHLORASEPTIC ) LOZENGE MM PRN (20:08)
[2022-04-18] MEDS ORDERED: IBUPROFEN 400 MG TABLET (FP) PO PRN (20:08)
[2022-04-18] MEDS ORDERED: MAGNESIUM HYDROX 2400MG/30ML ORAL SUSPENSION 30 ML CUP PO PRN (20:08)
[2022-04-18] MEDS ORDERED: METHOCARBAMOL 500 MG TABLET PO PRN (20:08)
[2022-04-18] MEDS ORDERED: P-EPHED 60MG/TRIPROLIDI 2.5MG TABLET PO PRN (20:08)
[2022-04-18] MEDS ORDERED: ACETAMINOPHEN 325 MG TABLET (FP) PO PRN ×2 (20:08)
[2022-04-18] MEDS ORDERED: NICOTINE POLACRILEX 2 MG GUM BUC PRN (20:08)
[2022-04-18] MEDS ORDERED: DICYCLOMINE HCL 10 MG CAPSULE PO PRN (20:08)
[2022-04-18] MEDS ORDERED: diazePAM 5 MG TABLET PO PRN (20:09)
[2022-04-18] MEDS: MELATONIN 5 MG TABLETS PO SCH (23:59)
[2022-04-18] MEDS: THIAMINE HCL 100 MG TABLET (FP) PO SCH (23:59)
[2022-04-19] MEDS: PRENATAL VITAMINS W/ FOLIC ACID TABLET (FP) PO SCH (10:13)
[2022-04-19] MEDS: chlordiazePOXIDE HCL 25 MG CAPSULE PO SCH ×3 (11:29→22:52)
[2022-04-19 12:42] LABS: ALBUMIN 3.2 g/dl (3.4-5.0); BLOOD UREA NITROGEN 13.3 mg/dL (7-18)
[2022-04-19 12:44] LABS: CALCIUM 9.6 mg/dL (8.5-10.1); HEMATOCRIT 41.3 % (35.4-49); HEMOGLOBIN 13.6 GM/dL (11.7-16.9); MCH 28.9 pg (25.7-33.7); MCHC 32.9 g/dl (32.0-35.9); MEAN CELL VOLUME 87.9 fl (80-96); MEAN PLT VOLUME 7.5 fl (7.5-11.1); PLATELET COUNT 428 10^3/uL (134-434); RDW 15.6 % (11.9-15.9); WHITE BLOOD COUNT 3.9 K/mm3 (4.0-10.0)
[2022-04-19 12:46] LABS: BILIRUBIN,TOTAL 0.6 mg/dL (0.2-1); TOT PROT 6.9 g/dl (6.4-8.2)
[2022-04-19 15:29] LABS: HIV INTERPRETATION NEGATIVE (NEGATIVE)
[2022-04-19] MEDS: MELATONIN 5 MG TABLETS PO SCH (22:52)
[2022-04-19] MEDS: THIAMINE HCL 100 MG TABLET (FP) PO SCH (22:52)
[2022-04-19] MEDS: risperiDONE 3 MG TABLET PO SCH (22:53)
[2022-04-20] MEDS: chlordiazePOXIDE HCL 25 MG CAPSULE PO SCH ×4 (06:24→22:32)
[2022-04-20] MEDS: PRENATAL VITAMINS W/ FOLIC ACID TABLET (FP) PO SCH (10:32)
[2022-04-20] MEDS: risperiDONE 3 MG TABLET PO SCH (22:32)
[2022-04-20] MEDS: THIAMINE HCL 100 MG TABLET (FP) PO SCH (22:32)
[2022-04-20] MEDS: MELATONIN 5 MG TABLETS PO SCH (22:58)
[2022-04-21] MEDS: chlordiazePOXIDE HCL 25 MG CAPSULE PO SCH ×4 (06:23→22:43)
[2022-04-21] MEDS: PRENATAL VITAMINS W/ FOLIC ACID TABLET (FP) PO SCH (10:32)
[2022-04-21] MEDS: amLODIPine BESYLATE 5 MG TABLET (FP) PO SCH (10:32)
[2022-04-21] MEDS: risperiDONE 3 MG TABLET PO SCH (22:23)
[2022-04-21] MEDS: THIAMINE HCL 100 MG TABLET (FP) PO SCH (22:23)
[2022-04-21] MEDS: MELATONIN 5 MG TABLETS PO SCH (22:43)
[2022-04-22] MEDS: chlordiazePOXIDE HCL 10 MG CAPSULE PO SCH ×2 (06:14→10:33)
[2022-04-22 09:21] VITALS: RESP 17
[2022-04-22] MEDS: PRENATAL VITAMINS W/ FOLIC ACID TABLET (FP) PO SCH (10:32)
[2022-04-22] MEDS: amLODIPine BESYLATE 5 MG TABLET (FP) PO SCH (10:33)
[2022-04-22 13:07] VITALS: BP 154/97; PULSE 75; TEMP 97.8
[2022-04-22] MEDS ORDERED: cloNIDine HCL 0.1 MG TABLET PO PRN (14:23)
[2022-04-23] MEDS ORDERED: chlordiazePOXIDE HCL 10 MG CAPSULE PO SCH (05:00)
[2022-04-24] MEDS ORDERED: chlordiazePOXIDE HCL 10 MG CAPSULE PO ONE (11:35)
== END 2022-04-22 15:40 | disposition left against medical advice (07) | DRG 894 ==
LOC: YASAS 19:00 → Y6N 20:23
PROVIDERS: ADMIT Allergy & Immunology; ATTEND Surgery
PROC: HZ2ZZZZ Detoxification Services for Substance Abuse Treatment (ICD-10-PCS; principal; 2022-04-18)
DX: F10.230 Alcohol dependence with withdrawal, uncomplicated (principal); F14.20 Cocaine dependence, uncomplicated; F12.20 Cannabis dependence, uncomplicated; F17.210 Nicotine dependence, cigarettes, uncomplicated; F20.9 Schizophrenia, unspecified; M54.59 Other low back pain; G89.29 Other chronic pain; Z88.0 Allergy status to penicillin; Z56.0 Unemployment, unspecified; Z59.01 Sheltered homelessness
CPT/HCPCS: 36415; 80053; 85027; 86593; 86780; 87389; C9803-CS; U0003; U0005

== ENCOUNTER 2023-02-07 17:07 | Inpatient (IN) | payer OTHER ==
[2023-02-07 17:59] VITALS: BMI 20.9
[2023-02-07] MEDS ORDERED: IBUPROFEN 600 MG TABLET (FP) PO PRN (19:42)
[2023-02-07] MEDS ORDERED: BISMUTH SUBSALICYLATE 524 MG/30 ML PO PRN (19:42)
[2023-02-07] MEDS ORDERED: MAG HYDROX/AL HYDROX/SIMETH 30 ML UNIT-DOSE CUP PO PRN (19:42)
[2023-02-07] MEDS ORDERED: METHOCARBAMOL 500 MG TABLET PO PRN (19:42)
[2023-02-07] MEDS ORDERED: BENZOCAINE/MENTHOL (CHLORASEPTIC ) LOZENGE MM PRN (19:42)
[2023-02-07] MEDS ORDERED: POLYETHYLENE GLYCOL (HEALTHYLAX) 3350 17 GM PACKET PO PRN (19:42)
[2023-02-07] MEDS ORDERED: ACETAMINOPHEN 325 MG TABLET (FP) PO PRN (19:42)
[2023-02-07] MEDS ORDERED: LOPERAMIDE HCL 2 MG CAPSULE PO PRN (19:42)
[2023-02-07] MEDS ORDERED: NALOXONE HCL 0.4 MG/ML VIAL IM PRN (19:42)
[2023-02-07] MEDS ORDERED: NALOXONE HCL (KLOXXADO) 8 MG SPRAY NS PRN (19:42)
[2023-02-07] MEDS ORDERED: MAGNESIUM HYDROX 2400MG/30ML ORAL SUSPENSION 30 ML CUP PO PRN (19:42)
[2023-02-07] MEDS ORDERED: hydrOXYzine PAMOATE 25 MG CAPSULE (FP) PO PRN (19:42)
[2023-02-07] MEDS ORDERED: guaiFENesin 600 MG TABLET.ER (FP) PO PRN (19:42)
[2023-02-07] MEDS ORDERED: ONDANSETRON *ODT* 4 MG TABLET SL PRN (19:42)
[2023-02-07] MEDS ORDERED: BENZONATATE 200 MG CAPSULE PO PRN (19:42)
[2023-02-07] MEDS ORDERED: IBUPROFEN 400 MG TABLET (FP) PO PRN (19:42)
[2023-02-07] MEDS ORDERED: DICYCLOMINE HCL 10 MG CAPSULE PO PRN (19:42)
[2023-02-07] MEDS: MELATONIN 5 MG TABLETS PO SCH (23:13)
[2023-02-07] MEDS: THIAMINE HCL 100 MG TABLET (FP) PO SCH (23:14)
[2023-02-08] MEDS: PRENATAL VITAMINS W/ FOLIC ACID TABLET (FP) PO SCH (10:23)
[2023-02-08 11:43] LABS: HEMATOCRIT 38.9 % (35.4-49); HEMOGLOBIN 12.4 GM/dL (11.7-16.9); MCH 28.6 pg (25.7-33.7); MEAN CELL VOLUME 89.3 fl (80-96); MEAN PLT VOLUME 7.9 fl (7.5-11.1); PLATELET COUNT 292 10^3/uL (134-434); RBC 4.36 M/mm3 (4.00-5.60); RDW 16.8 % (11.9-15.9); WHITE BLOOD COUNT 4.1 K/mm3 (4.0-10.0)
[2023-02-08 12:06] LABS: POTASSIUM 4.2 mmol/L (3.5-5.1)
[2023-02-08 12:11] LABS: CALCIUM 8.1 mg/dL (8.5-10.1)
[2023-02-08 12:12] LABS: ALBUMIN 2.8 g/dl (3.4-5.0); BLOOD UREA NITROGEN 16.1 mg/dL (7-18)
[2023-02-08 12:15] LABS: CREATININE 0.8 mg/dL (0.55-1.3)
[2023-02-08 12:16] LABS: TOT PROT 5.7 g/dl (6.4-8.2)
[2023-02-08 12:17] LABS: BILIRUBIN,TOTAL 0.2 mg/dL (0.2-1)
[2023-02-08] MEDS: risperiDONE 2 MG TABLET PO SCH (22:44)
[2023-02-08] MEDS: THIAMINE HCL 100 MG TABLET (FP) PO SCH (22:44)
[2023-02-08] MEDS: MELATONIN 5 MG TABLETS PO SCH (22:45)
[2023-02-09] MEDS: PRENATAL VITAMINS W/ FOLIC ACID TABLET (FP) PO SCH (10:10)
[2023-02-09] MEDS: THIAMINE HCL 100 MG TABLET (FP) PO SCH (22:35)
[2023-02-09] MEDS: risperiDONE 2 MG TABLET PO SCH (22:35)
[2023-02-09] MEDS: MELATONIN 5 MG TABLETS PO SCH (22:36)
[2023-02-09] MEDS ORDERED: cloNIDine HCL 0.1 MG TABLET PO ONE (22:41)
[2023-02-10 08:56] VITALS: BP 134/86; PULSE 67; RESP 18; TEMP 97.8
[2023-02-10] MEDS: PRENATAL VITAMINS W/ FOLIC ACID TABLET (FP) PO SCH (09:25)
== END 2023-02-10 10:55 | disposition home or self-care (01) | DRG 897 ==
LOC: YASAS 17:07 → Y6N 19:09
PROVIDERS: ADMIT Allergy & Immunology; ATTEND Surgery
PROC: HZ2ZZZZ Detoxification Services for Substance Abuse Treatment (ICD-10-PCS; principal; 2023-02-07)
DX: F10.20 Alcohol dependence, uncomplicated (principal); F14.20 Cocaine dependence, uncomplicated; F12.20 Cannabis dependence, uncomplicated; F17.210 Nicotine dependence, cigarettes, uncomplicated; F20.9 Schizophrenia, unspecified; M54.50 Low back pain, unspecified; G89.29 Other chronic pain; Z86.19 Personal history of other infectious and parasitic diseases; Z88.0 Allergy status to penicillin
CPT/HCPCS: 36415; 80053; 85027; 86593; 86780; 87635